=== PATIENT | male | born 1970 | race Caucasian/White ===

== ENCOUNTER 2017-07-25 08:59 | Emergency (ER) | payer SELFPAY ==
[2017-07-25] MEDS ORDERED: NORMAL SALINE 1,000 ML IV ONE ×2 (09:27→11:26)
[2017-07-25] MEDS ORDERED: ONDANSETRON HCL/PF 2 MG/ML VIAL IV ONE (09:27)
[2017-07-25] MEDS ORDERED: ONDANSETRON HCL/PF 2 MG/ML VIAL ONE (09:30)
[2017-07-25 09:52] LABS: Hematocrit 30.5 % (42.0-52.0); Hemoglobin 11.4 gm/dL (13.5-18.0); Mean Cell Volume 106.6 fl (78-100); Mean Corpuscular Hemoglobin 39.9 pg (27-31); Mean Corpuscular Hgb Conc 37.4 g/dl (32-36); Mean Platelet Volume 10.1 fl (6.0-9.5); Neutrophil # 1.4 K/mm3 (1.3-6.0); Neutrophil % 35.7 % (42-75.0); Platelet Count 113 K/mm3 (150-450); Red Blood Count 2.86 M/mm3 (4.7-6.0); Red Cell Distribution Width 13.6 % (11.5-14.0)
[2017-07-25 10:06] LABS: Albumin * 3.1 gm/dl (3.4-5.0); Anion Gap 6.1 mmol/L (6.8-13.8); BUN/Creatinine Ratio 5.6 (9.0-21.6); Bilirubin, Total 0.8 mg/dL (0.0-1.1); Ca. Corrected For Albumin 9.4 mg/dL (8.4-10.2); Carbon Dioxide 34.9 mmol/L (24-32.6); Total Protein 6.4 gm/dL (6.2-8.2)
[2017-07-25 10:23] LABS: Urine Bilirubin 1 mg/dl (NEGATIVE); Urine Blood Negative /ul (NEGATIVE); Urine Ketone 5 mg/dL (NEGATIVE); Urine Nitrite Negative (NEGATIVE); Urine Protein Negative (NEGATIVE); Urine Urobilinogen Normal (NORMAL); Urine pH 8.5 pH (5.0-7.0)
[2017-07-25 10:33] LABS: Cocaine Ur Negative (NEGATIVE); Urine Barbiturate Negative (NEGATIVE); Urine Benzodiazepines Negative (NEGATIVE); Urine Opiates Negative (NEGATIVE); Urine PCP Negative (NEGATIVE); Urine THC Negative (NEGATIVE)
[2017-07-25 10:35] LABS: Urine Appearance Clear; Urine Bacteria None Seen; Urine Color Dark Yellow; Urine RBC TRACE /hpf (0-5); Urine WBC TRACE /hpf (0-5)
[2017-07-25] MEDS ORDERED: DIATRIZOATE MEGLUMINE, SODIUM 30 ML BTL ONE (10:46)
[2017-07-25] MEDS ORDERED: DIATRIZOATE MEGLUMINE, SODIUM 30 ML BTL PO ONE (10:50)
[2017-07-25] MEDS: POTASSIUM CHLORIDE IN WATER 100 ML IV SCH ×3 (11:26→14:30)
[2017-07-25 12:43] VITALS: BP 127/88
--- NOTE | 2017-07-25 14:15 | ERNOTE ---
Dizziness ER Record Date of Service: 07/25/17 Presenting Symptoms: dizziness, weakness Time Seen by Provider: 07/25/17 09:15 Source: patient, family Exam Limitations: no limitations Immunizations: IMMUNIZATION HX Immunizations Up to Date Yes History of Influenza Vaccine No Hx Pneumococcal Vaccination No Allergies/Adverse Reactions: Allergies Allergy/AdvReac Type Severity Reaction Status Date / Time No Known Allergies Allergy Unverified 07/25/17 09:10 Home Medications: HOME MEDICATIONS Diphenoxylate HCl/Atrop Sulf [Lomotil] 2.5 mg PO QID PRN #40 tab 07/25/17 [Last Taken Unknown] Omeprazole [Prilosec] 20 mg PO DAILY 07/25/17 [Last Taken Unknown] Ondansetron [Zofran Odt] 4 mg PO Q8H PRN #20 tab 07/25/17 [Last Taken Unknown] Potassium Chloride [K-Dur] 20 meq PO DAILY #30 tab 07/25/17 [Last Taken Unknown] - History of Present Illness Narrative: patient has been sick with nausea and vomiting and diarrhea for one week normally drinks eight plus beers aday and has not done this for one week Timing and Duration: gradual onset Noted on awakening:: No Severity: max: moderate Severity: currently: moderate Associated Symptoms: Present: weakness, light headedness Sense of movement: Present: none Fainted/near fainted while:: Present: standing Decreased ability to stand/walk:: Present: weak, off balance Usually:: Present: walks w/o assistance Modifying Factors - (Improves): Reports: nothing Modifying Factors - (Worsens): Reports: movement of head Review of Systems - Review of Systems Constitutional: Present: See HPI EYE: Present: no symptoms reported ENT: Present: no symptoms reported Respiratory: Present: no symptoms reported Cardiology: Present: no symptoms reported Gastrointestinal/Abdominal: Present: See HPI, nausea, vomiting, diarrhea, abdominal pain, eating less, drinking less Genitourinary: Present: no symptoms reported Musculoskeletal: Present: no symptoms reported Skin: Present: no symptoms reported Neurological: Present: no symptoms reported Endocrine: Present: no symptoms reported Hematologic/Lymphatic: Present: no symptoms reported Psych: Present: no symptoms reported All Other Systems: All systems neg except as marked - Narrative Narrative: hx of chronic alcohol abuse - Patient's Past Medical History Patient History - Medical: GERD Patient History - Cardiac/Respiratory: No pertinent hx Patient History - Cancer: No Hx of Cancer Patient History - Surgical Procedures: No surgical history, Other Patient History - Other: None - Family History Family History:: no untoward family reactions to anesthesia, no familial bleeding tendencies, no family history of clotting disorders, no family history of premature - Social History Living Situations: home Abuse History: Hx of Substance Use Psych History: No pertinent hx, Hx of Anxiety Does anyone smoke in the home?: Yes Smoking Status: Current every day smoker Have you smoked in the past 12 months: Yes Do you dip or chew tobacco: No Patient requests Smoking Cessation Consult: No Initiate information on Smoking Cessation: No Alcohol Use: heavy Drug Use: none - Immunizations Immunizations Up to Date: Yes Hx Pneumococcal Vaccination: No History of Influenza Vaccine: No Physical Exam - Physical Exam General Appearance: Present: moderate distress Head Exam: Present: normal inspection, no evidence of injury Eye Exam: Normal inspection: bilateral, PERRL: bilateral, EOMI: bilateral Ears, Nose, Throat: Present: normal ENT inspection Neck: Present: normal inspection, nontender Respiratory: Present: no respiratory distress, normal breath sounds, no accessory muscle use, chest nontender, lungs clear Cardiovascular/Chest: Present: regular rate, rhythm, no murmur, normal peripheral pulses Peripheral Pulses: N=norm/S=strong/W=weak/B=bound/A=absent: Carotid (R): Normal , Carotid (L): Normal, Radial (R): Normal, Radial (L): Normal, Femoral (R): Normal, Femoral (L): Normal, Dorsalis-pedis (R): Normal, Dorsalis-pedis (L): Normal Gastrointestinal/Abdominal: Present: normal bowel sounds, tenderness - diffuse tenderness no quarding Back Exam: Present: normal inspection, normal range of motion, no CVA tenderness , no vertebral tenderness Extremity Exam: Present: normal inspection, non-tender, normal range of motion, no edema Neurological Exam: Present: alert, oriented, normal mood/affect, no motor/ sensory deficits DTR: N=norm/NB=norm/brisk/A=abs/DD=dull/dimin/HC=hyperactive: Bicep (R): Normal , Bicep (L): Normal, Tricep (R): Normal, Tricep (L): Normal, Knee (R): Normal, Knee (L): Normal, Ankle (R): Normal, Ankle (L): Normal Skin Exam: Present: other - appears dehydrated ED Progress - Date and Time Seen: Date and Time: 07/25/17 14:06 patient appears improved , requesting dismissal - Results and Orders Patient's Lab Results:: I have reviewed the patient's lab results. - Vital Signs Patient's Vital Signs:: I have reviewed the patient's vital signs. Vital Signs: Vital Signs 07/25/17 07/25/17 07/25/17 09:03 09:13 09:27 Temperature 36.4 C L Pulse Rate 75 94 68 Respiratory 13 20 Rate Blood Pressure 145/102 125/77 O2 Sat by Pulse 98 100 Oximetry 07/25/17 07/25/17 07/25/17 09:51 11:03 11:53 Temperature Pulse Rate 65 66 65 Respiratory 15 10 L 11 L Rate Blood Pressure 136/99 138/99 118/92 O2 Sat by Pulse 100 100 100 Oximetry 07/25/17 07/25/17 12:41 13:50 Temperature Pulse Rate 71 78 Respiratory 13 Rate Blood Pressure 127/88 O2 Sat by Pulse 100 100 Oximetry - EKG EKG: NSR - X-Ray X-Ray #1 X-Ray: abdomen - no acute process Interpretation: Discd w/ radiologist - CT/Ultrasound CT/Ultrasound Narrative: ct reported as no evidense of acute process or pancreatitis - Progress/Reassessment Chief Complaint: Dizziness Progress:: Unchanged - Transfer of Care Expected Disposition: Discharge - patient recommende to be admitted, is to sign out ama Plan - Plan Plan: to be discharged ama Departure Clinical Impression: Hypokalemia, Pancreatitis, acute, Dehydration, moderate - Departure Disposition: Against medical advice Condition: Serious Instructions: Hypokalemia, Acute Pancreatitis, Dehydration, Adult, [id number] Prescriptions: Diphenoxylate HCl/Atrop Sulf [Lomotil] 2.5 mg PO QID PRN #40 tab PRN Reason: Diarrhea Ondansetron [Zofran Odt] 4 mg PO Q8H PRN #20 tab PRN Reason: Nausea Potassium Chloride [K-Dur] 20 meq PO DAILY #30 tab
== END 2017-07-25 14:33 | disposition left against medical advice (07) ==
LOC: ER 08:59
DX: E87.6 Hypokalemia (principal); K85.90 Acute pancreatitis without necrosis or infection, unspecified; E86.0 Dehydration; F17.200 Nicotine dependence, unspecified, uncomplicated; Z53.29 Procedure and treatment not carried out because of patient's decision for other reasons; K21.9 Gastro-esophageal reflux disease without esophagitis
CPT/HCPCS: 36415; 74018; 74177; 80053; 80307; 81001; 82150; 83690; 84132; 85025; 93005; 96361; 96365; 96366; 96375; 99285; J2405

== ENCOUNTER 2017-08-04 14:22 | Emergency (ER) | payer SELFPAY ==
[2017-08-04 15:03] LABS: Hematocrit 31.3 % (42.0-52.0); Mean Cell Volume 108.7 fl (78-100); Mean Corpuscular Hemoglobin 38.2 pg (27-31); Mean Corpuscular Hgb Conc 35.1 g/dl (32-36); Neutrophil # 3.6 K/mm3 (1.3-6.0); Neutrophil % 73.1 % (42-75.0); Platelet Count 166 K/mm3 (150-450); Red Blood Count 2.88 M/mm3 (4.7-6.0); Red Cell Distribution Width 14.3 % (11.5-14.0)
--- NOTE | 2017-08-04 15:04 | ERNOTE ---
Lower Extremity HPI - General Lower Extremities Pain: leg: right - swelling and pain Time Seen by Provider: 08/04/17 14:38 Source: patient Exam Limitations: no limitations - Immun/Allergies/Home Medications Immunizations: IMMUNIZATION HX Immunizations Up to Date Yes History of Influenza Vaccine No Hx Pneumococcal Vaccination No Allergies/Adverse Reactions: Allergies Allergy/AdvReac Type Severity Reaction Status Date / Time No Known Allergies Allergy Verified 08/04/17 14:36 Home Medications: HOME MEDICATIONS Diphenoxylate HCl/Atrop Sulf [Lomotil] 2.5 mg PO QID PRN #40 tab 07/25/17 [Last Taken Unknown] Omeprazole [Prilosec] 20 mg PO DAILY 07/25/17 [Last Taken Unknown] Potassium Chloride [K-Dur] 20 meq PO DAILY #30 tab 07/25/17 [Last Taken Unknown] Warfarin Sodium [Coumadin] 5 mg PO DAILY #30 tablet 08/04/17 [Last Taken Unknown ] - History of Present Illness Narrative: Patient complains of swelling in the right calf and right foot and ankle. He admits to drinking up to a fifth of vodka a day and has had a recent bout of hypokalemia. He rates the pain as only mild in severity but also complains that his skin appears to be somewhat yellowish as well. Occurred: other - over the past few days Method of Injury: Reports: no apparent injury Loss of Consciousness: Reports: no loss of consciousness Other Injuries: Reports: none Review of Systems - Review of Systems Constitutional: Present: See HPI EYE: Present: other - yellowish appearance to the sclera ENT: Present: no symptoms reported Respiratory: Present: no symptoms reported Cardiology: Present: no symptoms reported Gastrointestinal/Abdominal: Present: no symptoms reported Genitourinary: Present: no symptoms reported Musculoskeletal: Present: other - equivocal Homans with 2+ edema in the right lower extremity Skin: Present: no symptoms reported Neurological: Present: no symptoms reported Endocrine: Present: no symptoms reported Hematologic/Lymphatic: Present: no symptoms reported Psych: Present: no symptoms reported - Patient's Past Medical History Patient History - Medical: GERD Patient History - Cardiac/Respiratory: No pertinent hx Patient History - Cancer: No Hx of Cancer Patient History - Surgical Procedures: No surgical history, Other Patient History - Other: None - Social History Living Situations: home Abuse History: Hx of Substance Use - daily alcohol Psych History: No pertinent hx, Hx of Anxiety Alcohol Use: none Drug Use: none - Immunizations Immunizations Up to Date: Yes Hx Pneumococcal Vaccination: No History of Influenza Vaccine: No Physical Exam - Physical Exam General Appearance: Present: wd/wn, alert, mild distress Head Exam: Present: normal inspection, no evidence of injury Eye Exam: PERRL: bilateral, Scleral icterus: bilateral Ears, Nose, Throat: Present: normal ENT inspection, H, normal pharynx Neck: Present: normal inspection, nontender Respiratory: Present: no respiratory distress, normal breath sounds, no accessory muscle use, chest nontender, lungs clear Cardiovascular/Chest: Present: regular rate, rhythm, no murmur, normal peripheral pulses Gastrointestinal/Abdominal: Present: normal bowel sounds, nontender, nondistended, soft, no organomegaly Rectal Exam: Present: deferred Back Exam: Present: normal inspection, normal range of motion Extremity Exam: Present: non-tender, normal range of motion, calf tenderness - on the right, joint swelling - around the right foot and ankle Neurological Exam: Present: alert, oriented, normal mood/affect Skin Exam: Present: warm/dry, jaundice Lymphatic Exam: Present: no adenopathy ED Progress - Results and Orders Patient's Lab Results:: I have reviewed the patient's lab results. - Vital Signs Patient's Vital Signs:: I have reviewed the patient's vital signs. Vital Signs: Vital Signs 08/04/17 14:31 Temperature 36.6 C Pulse Rate 106 H Respiratory 12 Rate Blood Pressure 153/109 O2 Sat by Pulse 97 Oximetry - CT/Ultrasound CT/Ultrasound Narrative: Ultrasound of the right lower extremity reviewed by me - Progress/Reassessment Chief Complaint: Lower Extremity Pain/ Injury Plan - Plan Plan: Patient has a DVT in the right calf and will need to be treated with some form of anticoagulant. This would be somewhat problematic because he is also an alcoholic. We will do our best to try to provide some degree of anticoagulation and he will try to cut back on his alcohol consumption. Departure Clinical Impression: Hypokalemia DVT (deep venous thrombosis) Qualifiers: DVT location: lower extremity Affected thrombotic vein of extremity: unspecified lower extremity proximal vein Chronicity: acute Laterality: right Qualified Code(s): I82.4Y1 - Acute embolism and thrombosis of unspecified deep veins of right proximal lower extremity - Departure Disposition: Home self-care Condition: Good Instructions: Deep Vein Thrombosis Additional Instructions: return to the [facility] for PT/INR checks at [facility] Prescriptions: Warfarin Sodium [Coumadin] 5 mg PO DAILY #30 tablet
[2017-08-04 15:15] LABS: ALT 45 U/L (19-67); AST 62 U/L (0-48); Albumin * 2.8 gm/dl (3.4-5.0); Alkaline Phosphatase * 79 U/L (50-170); Anion Gap 12.7 mmol/L (6.8-13.8); BUN/Creatinine Ratio 2.7 (9.0-21.6); Bilirubin, Total 0.7 mg/dL (0.0-1.1); Blood Urea Nitrogen 2 mg/dL (6-23); Ca. Corrected For Albumin 8.8 mg/dL (8.4-10.2); Calcium * 8.2 mg/dL (7.9-10.9); Carbon Dioxide 28.4 mmol/L (24-32.6); Chloride 101 mmol/L (97-106); Glucose * 111 mg/dL (70-110); Magnesium 1.4 mg/dL (1.2-2.8); Potassium 3.1 mmol/L (3.4-4.6); Sodium 139 mmol/L (132-142); Total Protein 5.8 gm/dL (6.2-8.2)
[2017-08-04] MEDS ORDERED: POTASSIUM CHLORIDE 20 MEQ TABLET.SA PO ONE (15:48)
[2017-08-04] MEDS ORDERED: POTASSIUM CHLORIDE 20 MEQ TABLET.SA ONE (16:03)
[2017-08-04] MEDS ORDERED: WARFARIN SODIUM 5 MG TABLET PO ONE (16:15)
[2017-08-04 16:19] LABS: Prothrombin Time (Patient) 10.9 Seconds (9.0-11.0)
[2017-08-04 16:20] LABS: INR 1.09 INR (0.90-1.10)
[2017-08-04 16:42] VITALS: BP 149/101
== END 2017-08-04 16:25 | disposition home or self-care (01) ==
LOC: ER 14:22
DX: I82.4Y1 Acute embolism and thrombosis of unspecified deep veins of right proximal lower extremity; E87.6 Hypokalemia
CPT/HCPCS: 36415; 80053; 83735; 85025; 85610; 93971; 99284; G0481

== ENCOUNTER 2017-08-08 09:29 | Observation (INO) | payer SELFPAY ==
[2017-08-08] MEDS ORDERED: THIAMINE HCL 100 MG in NORMAL SALINE 50 ML IV ONE (10:13)
[2017-08-08] MEDS ORDERED: NORMAL SALINE 1,000 ML IV ONE (10:13)
[2017-08-08] MEDS ORDERED: MULTIVIT INFUSN,ADULT 4,VIT K 10 ML, THIAMINE HCL 100 MG in NORMAL SALINE 1,000 ML IV SCH (10:15)
[2017-08-08 10:19] LABS: Cocaine Ur Negative (NEGATIVE); Urine Barbiturate Negative (NEGATIVE); Urine Benzodiazepines Negative (NEGATIVE); Urine Opiates Negative (NEGATIVE); Urine PCP Negative (NEGATIVE); Urine THC Negative (NEGATIVE)
[2017-08-08 10:26] LABS: Urine Appearance Clear; Urine Bacteria None Seen; Urine Bilirubin Negative (NEGATIVE); Urine Blood Negative /ul (NEGATIVE); Urine Color Yellow; Urine Ketone Negative (NEGATIVE); Urine Nitrite Negative (NEGATIVE); Urine Protein Negative (NEGATIVE); Urine RBC None Seen /hpf (0-5); Urine Specific Gravity 1.005 SP.GR. (1.005-1.030); Urine Urobilinogen Normal (NORMAL); Urine WBC None Seen /hpf (0-5)
[2017-08-08] MEDS ORDERED: chlordiazePOXIDE HCL 25 MG CAPSULE PO ONE ×2 (10:27→10:30)
[2017-08-08] MEDS ORDERED: LORazepam 2 MG/ML DISP.SYRIN IV ONE (10:28)
[2017-08-08 10:30] LABS: Hematocrit 29.4 % (42.0-52.0); Hemoglobin 10.5 gm/dL (13.5-18.0); Mean Cell Volume 110.9 fl (78-100); Mean Corpuscular Hemoglobin 39.6 pg (27-31); Mean Corpuscular Hgb Conc 35.7 g/dl (32-36); Mean Platelet Volume 9.3 fl (6.0-9.5); Neutrophil # 3.2 K/mm3 (1.3-6.0); Platelet Count 154 K/mm3 (150-450); Red Blood Count 2.65 M/mm3 (4.7-6.0); Red Cell Distribution Width 14.8 % (11.5-14.0); White Blood Count 5.3 K/mm3 (4.0-10.5)
[2017-08-08 10:38] LABS: Prothrombin Time (Patient) 18.1 Seconds (9.0-11.0)
[2017-08-08 10:39] LABS: INR 1.8 INR (0.90-1.10)
--- NOTE | 2017-08-08 10:45 | ERNOTE ---
Medical Problem HPI - Narrative Date of Service: 08/08/17 - General Chief Complaint: General Assessment Time Seen by Provider: 08/08/17 09:59 Source: patient Exam Limitations: no limitations - Immun/Allergies/Home Medications Immunizations: IMMUNIZATION HX Immunizations Up to Date Yes History of Influenza Vaccine No Hx Pneumococcal Vaccination No Allergies/Adverse Reactions: Allergies No Known Allergies Allergy (Verified 08/08/17 09:56) Home Medications: HOME MEDICATIONS Diphenoxylate HCl/Atrop Sulf [Lomotil] 2.5 mg PO QID PRN #40 tab 07/25/17 [Last Taken Unknown] Omeprazole [Prilosec] 20 mg PO DAILY 07/25/17 [Last Taken Unknown] Potassium Chloride [K-Dur] 20 meq PO DAILY #30 tab 07/25/17 [Last Taken Unknown] Warfarin Sodium [Coumadin] 5 mg PO DAILY #30 tablet 08/04/17 [Last Taken Unknown ] - History of Present History Narrative: Pt. comes in with c/o confusion, shakiness, and hallucinations after he stopped drinking ETOH 5 days ago. Pt. states that he used to drink 1.5 bottles of tequila or vodka a day and stopped cold turkey when he was started on Coumadin and his cousin who is here states that the day after he stopped he was walking like a marionette very uncoordinated and has had many episodes of short term memory loss. Cousin denies any episodes of specific weakness. Timing: getting worse Severity: moderate Modifying Factors - (Improves): Present: other - denies Modifying Factors - (Worsens): Present: other - denies Review of Systems - Review of Systems Constitutional: Present: no symptoms reported. Absent: fever, chills, weakness , fatigue, malaise EYE: Present: no symptoms reported. Absent: eye pain, double vision ENT: Present: no symptoms reported Respiratory: Present: no symptoms reported. Absent: shortness of breath, cough , wheezing Cardiology: Present: chest pain - occasional. Absent: palpitations, edema Gastrointestinal/Abdominal: Present: nausea. Absent: vomiting, diarrhea Genitourinary: Present: no symptoms reported. Absent: frequency, decreased urinary output Musculoskeletal: Present: no symptoms reported. Absent: back pain, neck pain, joint pain Skin: Present: no symptoms reported. Absent: rash, change in color Neurological: Present: weakness, tremors, other - confusion and hallucinations. Absent: headache, dizziness/light-headedness, numbness, tingling All Other Systems: All systems neg except as marked - Patient's Past Medical History Patient History - Medical: GERD, Other - ETOH abuse Patient History - Cardiac/Respiratory: No pertinent hx Patient History - Cancer: No Hx of Cancer Patient History - Surgical Procedures: No surgical history, Other Patient History - Other: None - Social History Living Situations: home Abuse History: Hx of Substance Use Psych History: No pertinent hx, Hx of Anxiety Smoking Status: Former smoker Alcohol Use: heavy Drug Use: none - Immunizations Immunizations Up to Date: Yes Hx Pneumococcal Vaccination: No History of Influenza Vaccine: No Physical Exam - Physical Exam General Appearance: Present: wd/wn, alert, no apparent distress Head Exam: Present: normal inspection, no evidence of injury Eye Exam: PERRL: bilateral, Other: bilateral - nystagmus B with lateral movement Ears, Nose, Throat: Present: normal ENT inspection, normal pharynx Neck: Present: normal inspection, nontender, supple, full range of motion. Absent: lymphadenopathy (R), lymphadenopathy (L) Respiratory: Present: no respiratory distress, normal breath sounds, no accessory muscle use, chest nontender, lungs clear. Absent: crackles, rales, rhonchi, wheezing Cardiovascular/Chest: Present: regular rate, rhythm, no murmur, normal peripheral pulses. Absent: tachycardia Gastrointestinal/Abdominal: Present: normal bowel sounds, nontender, nondistended, soft, no organomegaly. Absent: guarding, rebound, Ozuna sign, mass Rectal Exam: Present: nontender Back Exam: Present: normal inspection Extremity Exam: Present: normal inspection Neurological Exam: Present: alert, disoriented to situation, other - hallucinations, moderate tremor, delusional, and forgetful ED Progress - Date and Time Seen: Date and Time: 08/08/17 11:[address] Araujo and he agrees to admit for observation and would like add on ammonia level - Results and Orders Patient's Lab Results:: I have reviewed the patient's lab results. - Vital Signs Patient's Vital Signs:: I have reviewed the patient's vital signs. Vital Signs: Vital Signs 08/08/17 09:51 Temperature 36.9 C Pulse Rate 103 H Respiratory 12 Rate Blood Pressure 151/100 O2 Sat by Pulse 99 Oximetry - EKG EKG: NSR EKG read: Interp. by me - X-Ray X-Ray #1 X-Ray: chest Interpretation: Reviewed by me X-ray Comments: No acute cardiopulmonary abnormality - CT/Ultrasound CT/Ultrasound Narrative: CT head negative for any acute abnormality - Progress/Reassessment Chief Complaint: General Assessment Departure Clinical Impression: Wernicke's encephalopathy, Alcohol withdrawal delirium - Departure Disposition: Still a patient Condition: Serious
[2017-08-08 10:47] LABS: ALT 31 U/L (19-67); AST 30 U/L (0-48); Albumin * 2.7 gm/dl (3.4-5.0); Alkaline Phosphatase * 68 U/L (50-170); Anion Gap 15.8 mmol/L (6.8-13.8); BUN/Creatinine Ratio 6.8 (9.0-21.6); Bilirubin, Total 0.7 mg/dL (0.0-1.1); Blood Urea Nitrogen 4 mg/dL (6-23); Ca. Corrected For Albumin 9.7 mg/dL (8.4-10.2); Carbon Dioxide 24.6 mmol/L (24-32.6); Chloride 100 mmol/L (97-106); Glucose * 89 mg/dL (70-110); Magnesium 1.4 mg/dL (1.2-2.8); Phosphorus 4.8 mg/dL (2.2-4.2); Potassium 3.4 mmol/L (3.4-4.6); Sodium 137 mmol/L (132-142); Total Protein 6.1 gm/dL (6.2-8.2)
[2017-08-08 10:48] LABS: Troponin I Less than 0.017 ng/ml (0.00-0.10)
[2017-08-08] MEDS ORDERED: LORazepam 2 MG/ML DISP.SYRIN ONE (10:57)
[2017-08-08] MEDS ORDERED: chlordiazePOXIDE HCL 25 MG CAPSULE ONE (10:57)
[2017-08-08] MEDS ORDERED: THIAMINE HCL 100 MG, FOLIC ACID 1 MG in NORMAL SALINE 50 ML IV ONE (11:00)
[2017-08-08] MEDS: chlordiazePOXIDE HCL 25 MG CAPSULE PO SCH ×3 (14:44→20:48)
[2017-08-08] MEDS: LORazepam 2 MG/ML DISP.SYRIN IV PRN ×3 (17:40→22:14)
--- NOTE | 2017-08-08 23:29 | HP ---
Chief Complaint - Chief Complaint Date of Service: 08/08/17 Time of Service: 16:00 Chief Complaint: Confusion, hallucination History of Present Illness: Olu is a 46 yo male with recent history of DVT. He was started on coumadin a few weeks ago and the patient decided to stop drinking. He is a chronic alcoholic, reportedly drinking a fifth of vodka daily. He sudden stopped a week ago. A few days ago he begin having shakes which have progressed and is now having confusion, hallucinations, tremors, and balance difficulty. He reports stopping alcohol before, but admits that he wasn't drinking as much then. In regards to the recent DVT he denies family history, recent travel, or recent injury. Family does report that he has been sitting around at home drinking and eating poorly. They do not believe he is as active as he was. There are no reports of trauma to the head. He denies headache. - Patient's Past Medical History Patient History - Medical: Alcohol Abuse, GERD, Other - DVT right leg Patient History - Cardiac/Respiratory: No pertinent hx Patient History - Cancer: No Hx of Cancer Patient History - Surgical Procedures: No surgical history Patient History - Other: None - Family History Father Family History - Medical: Anxiety, Arthritis, Depression Family History - Cancer: No pertinent family hx Mother Family History - Medical: History Unknown - Social History Living Situations: alone Abuse History: Hx of Substance Use Psych History: No pertinent hx, Hx of Anxiety Smoking Status: Current some day smoker Have you smoked in the past 12 months: Yes Do you dip or chew tobacco: No Smoking Start Date: 06/16/12 Patient requests Smoking Cessation Consult: Yes Initiate information on Smoking Cessation: Yes Alcohol Use: heavy - Stopped 08/03/17 Drug Use: none - Immunizations Immunizations Up to Date: Yes Hx Pneumococcal Vaccination: No History of Influenza Vaccine: No Review Of Systems (GEN) - Review of Systems Generalized/Overall Review: Present: Weakness, Malaise, Fatigue. Absent: Chills , Fever, Diaphoresis EENTM: Present: No Symptoms Reported Respiratory: Present: No Symptoms Reported Cardiac: Present: No Symptoms Reported Abdominal: Present: No Symptoms Reported Genitourinary: Present: No Symptoms Reported Musculoskeletal: Present: Muscle Pain - Right leg Neurological: Present: Tremors, Weakness, Other - Hallucinations, confusion Skin: Present: No Symptoms Reported Endocrine: Present: No Symptoms Reported Allergies/Adverse Reactions: Allergies Allergy/AdvReac Type Severity Reaction Status Date / Time No Known Allergies Allergy Verified 08/08/17 14:03 Home Medications: HOME MEDICATIONS Omeprazole [Prilosec] 20 mg PO DAILY 07/25/17 [Last Taken Unknown] Potassium Chloride [K-Dur] 20 meq PO DAILY #30 tab 07/25/17 [Last Taken Unknown] Warfarin Sodium [Coumadin] 5 mg PO DAILY #30 tablet 08/04/17 [Last Taken Unknown ] Exam - Exam Vital Signs: Vital Signs - Last Taken Temp 36.9 C 08/08/17 19:11 Pulse 116 H 08/08/17 19:11 Resp 20 08/08/17 19:11 BP 145/98 08/08/17 19:11 Pulse Ox 92 08/08/17 19:11 Constitutional: Present: Alert, Oriented x3, Cooperative ENT Exam: Present: hearing grossly normal Eye Exam: bilateral eye: normal inspection Respiratory: Present: lungs clear, normal breath sounds Cardiovascular/Chest: Present: regular rate, rhythm, no murmur Abdomen: Present: Normal bowel sounds, soft, nontender, nondistended Extremity: Present: no pedal edema, no calf tenderness Skin Exam: Present: normal color, warm/dry, no cyanosis Lymphatic: Present: no adenopathy 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, no motor/sensory deficits, alert , normal mood/affect, oriented x 3, other - Mild tremor Eye contact: Present: cooperative, good eye contact, normal speech Diagnostic Studies: Laboratory Results WBC 5.3 K/mm3 (4.0-10.5) 08/08/17 10:23 RBC 2.65 M/mm3 (4.7-6.0) L 08/08/17 10:23 Hgb 10.5 gm/dL (13.5-18.0) L 08/08/17 10:23 Hct 29.4 % (42.0-52.0) L 08/08/17 10:23 MCV 110.9 fl (78-100) H 08/08/17 10:23 MCH 39.6 pg (27-31) H 08/08/17 10:23 MCHC 35.7 g/dl (32-36) 08/08/17 10:23 RDW 14.8 % (11.5-14.0) H 08/08/17 10:23 Plt Count 154 K/mm3 (150-450) 08/08/17 10:23 MPV 9.3 fl (6.0-9.5) 08/08/17 10:23 Immature Gran % (Auto) 0.40 % (0.001-0.429) 08/08/17 10:23 Immature Gran # (Auto) 0.02 K/mm3 (0.000-0.0310) 08/08/17 10:23 Neutrophils % 61.0 % (42-75.0) 08/08/17 10:23 Lymphocytes % 22.8 % (20-51) 08/08/17 10:23 Monocytes % 12.0 % (0.0-9) H 08/08/17 10:23 Eosinophils % 3.0 % (0.0-3.0) 08/08/17 10:23 Basophils % 0.8 % (0.0-1.0) 08/08/17 10:23 Nucleated RBC % 0.0 k/mm3 (0-1) 08/08/17 10:23 Neutrophils # 3.2 K/mm3 (1.3-6.0) 08/08/17 10:23 Lymphocytes # 1.2 k/mm3 (1.5-3.5) L 08/08/17 10:23 Monocytes # 0.6 k/mm3 (0.0-1.0) 08/08/17 10:23 Eosinophils # 0.2 k/mm3 (0.0-0.7) 08/08/17 10:23 Absolute Basophils 0.0 k/mm3 (0.0-0.1) 08/08/17 10:23 PT 18.1 Seconds (9.0-11.0) H 08/08/17 10:23 INR (Anticoag Therapy) 1.80 INR (0.90-1.10) H 08/08/17 10:23 Sodium 137 mmol/L (132-142) 08/08/17 10:23 Plasma Sodium 137 mmol/L (130-142) 08/08/17 10:23 Potassium 3.4 mmol/L (3.4-4.6) 08/08/17 10:23 Chloride 100 mmol/L (97-106) 08/08/17 10:23 Carbon Dioxide 24.6 mmol/L (24-32.6) 08/08/17 10:23 Anion Gap 15.8 mmol/L (6.8-13.8) H 08/08/17 10:23 BUN 4 mg/dL (6-23) L D 08/08/17 10:23 Creatinine 0.59 mg/dL (0.4-1.4) 08/08/17 10:23 Est GFR (Non-Af Amer) 158 mL/min (60-130) H D 08/08/17 10:23 BUN/Creatinine Ratio 6.8 (9.0-21.6) L 08/08/17 10:23 Random Glucose 89 mg/dL (70-110) 08/08/17 10:23 Calcium 9.0 mg/dL (7.9-10.9) 08/08/17 10:23 Calcium Adj for Albumin 9.7 mg/dL (8.4-10.2) 08/08/17 10:23 Phosphorus 4.8 mg/dL (2.2-4.2) H 08/08/17 10:23 Magnesium 1.4 mg/dL (1.2-2.8) 08/08/17 10:23 Total Bilirubin 0.7 mg/dL (0.0-1.1) 08/08/17 10:23 AST 30 U/L (0-48) 08/08/17 10:23 ALT 31 U/L (19-67) 08/08/17 10:23 Alkaline Phosphatase 68 U/L (50-170) 08/08/17 10:23 Ammonia Less than 17.0 mcmol/L (11-35) 08/08/17 12:00 Troponin I Less than 0.017 ng/ml (0.00-0.10) 08/08/17 10:23 Total Protein 6.1 gm/dL (6.2-8.2) L 08/08/17 10:23 Albumin 2.7 gm/dl (3.4-5.0) L 08/08/17 10:23 Urine Color Yellow 08/08/17 10:00 Urine Appearance Clear 08/08/17 10:00 Urine pH 6.0 pH (5.0-7.0) 08/08/17 10:00 Ur Specific [place] 1.005 SP.GR. (1.005-1.030) 08/08/17 10:00 Urine Protein Negative mg/dL (NEGATIVE) 08/08/17 10:00 Urine Glucose (UA) Negative mg/dL (NEGATIVE) 08/08/17 10:00 Urine Ketones Negative mg/dL (NEGATIVE) 08/08/17 10:00 Urine Blood Negative /ul (NEGATIVE) 08/08/17 10:00 Urine Nitrate Negative (NEGATIVE) 08/08/17 10:00 Urine Bilirubin Negative mg/dl (NEGATIVE) 08/08/17 10:00 Urine Urobilinogen Normal EU/dl (NORMAL) 08/08/17 10:00 Ur Leukocyte Esterase Negative /ul (NEGATIVE) 08/08/17 10:00 Urine RBC None seen /hpf (0-5) 08/08/17 10:00 Urine WBC None seen /hpf (0-5) 08/08/17 10:00 Ur Epithelial Cells None seen /hpf (0-5) 08/08/17 10:00 Urine Bacteria None seen (NONE) 08/08/17 10:00 Urine Culture Comments No culture indicated 08/08/17 10:00 Urine Opiates Screen Negative (NEGATIVE) 08/08/17 10:00 Barbiturate Screen Negative (NEGATIVE) 08/08/17 10:00 Ur Phencyclidine Scrn Negative (NEGATIVE) 08/08/17 10:00 Urine Amphetamine Negative (NEGATIVE) 08/08/17 10:00 U Benzodiazepines Scrn Negative (NEGATIVE) 08/08/17 10:00 Urine Cocaine Screen Negative (NEGATIVE) 08/08/17 10:00 Urine Marijuana (THC) Negative (NEGATIVE) 08/08/17 10:00 Ethyl Alcohol Less than 3.0 mg/dL (0.0-10.0) 08/08/17 10:23 Assessment/Plan - Assessment/Plan (1) Alcohol withdrawal delirium Assessment: Olu is a 46 yo male with evidence of alcohol withdrawal with delirium tremens. He stopped significant alcohol abuse this week, confirmed with zero alcohol in his serum. All other labs including electrolytes, ammonia, WBC were normal. Head CT was normal. Will admit to observation with CIWA protocol and Ativan withdrawal parameter. Will recheck bloodwork in the morning. Expect 1 midnight stay for monitoring of withdrawal symptoms, but based on CIWA scoring he may need further treatment if withdrawal is severe. Problem: Acute (2) DVT (deep venous thrombosis) Problem: Acute Qualifiers: DVT location: lower extremity Affected thrombotic vein of extremity: unspecified lower extremity proximal vein Chronicity: acute Laterality: right Qualified Code(s): I82.4Y1 - Acute embolism and thrombosis of unspecified deep veins of right proximal lower extremity
[2017-08-09] MEDS ORDERED: LORazepam 2 MG/ML DISP.SYRIN IV PRN ×2 (00:24→00:28)
[2017-08-09] MEDS: LORazepam 2 MG/ML DISP.SYRIN IV PRN ×3 (00:44→04:56)
[2017-08-09] MEDS: FOLIC ACID 1 MG TABLET PO SCH (10:00)
[2017-08-09] MEDS: chlordiazePOXIDE HCL 25 MG CAPSULE PO SCH ×3 (10:00→17:31)
[2017-08-09] MEDS: THIAMINE HCL 100 MG TABLET PO SCH (10:00)
[2017-08-09 11:12] LABS: Hematocrit 28.6 % (42.0-52.0); Hemoglobin 10.2 gm/dL (13.5-18.0); Mean Cell Volume 110.4 fl (78-100); Mean Corpuscular Hemoglobin 39.4 pg (27-31); Mean Corpuscular Hgb Conc 35.7 g/dl (32-36); Mean Platelet Volume 8.8 fl (6.0-9.5); Neutrophil # 2.1 K/mm3 (1.3-6.0); Neutrophil % 52.2 % (42-75.0); Platelet Count 171 K/mm3 (150-450); Red Blood Count 2.59 M/mm3 (4.7-6.0); Red Cell Distribution Width 14.5 % (11.5-14.0)
[2017-08-09 11:31] LABS: ALT 25 U/L (19-67); AST 28 U/L (0-48); Albumin * 2.4 gm/dl (3.4-5.0); Alkaline Phosphatase * 58 U/L (50-170); Anion Gap 16.4 mmol/L (6.8-13.8); BUN/Creatinine Ratio 6.3 (9.0-21.6); Bilirubin, Total 0.6 mg/dL (0.0-1.1); Blood Urea Nitrogen 3 mg/dL (6-23); Ca. Corrected For Albumin 9.3 mg/dL (8.4-10.2); Calcium * 8.3 mg/dL (7.9-10.9); Carbon Dioxide 26.3 mmol/L (24-32.6); Chloride 102 mmol/L (97-106); Glucose * 115 mg/dL (70-110); Potassium 2.7 mmol/L (3.4-4.6); Sodium 142 mmol/L (132-142); Total Protein 5.6 gm/dL (6.2-8.2)
[2017-08-09 11:32] LABS: Troponin I Less than 0.017 ng/ml (0.00-0.10)
[2017-08-09] MEDS ORDERED: POTASSIUM CHLORIDE 20 MEQ TABLET.SA PO ONE (11:34)
[2017-08-09] MEDS ORDERED: POTASSIUM CHLORIDE 20 MEQ TABLET.SA ONE (13:50)
--- NOTE | 2017-08-09 15:56 | PN ---
Subjective - Date and Time Seen Date: 08/09/17 Time: 12:00 Subjective Narrative: Olu has been confused, tremoring, hallucinating, and unsteady on feet. CIWA scale has been 25 at times, requiring Ativan per protocol. Patient unsure where he is at or why. He reports no concerns. Objective - Vitals Vitals: Last Vital Signs Temp 36.5 C 08/09/17 14:55 Pulse 96 08/09/17 14:55 Resp 20 08/09/17 14:55 BP 142/96 08/09/17 14:55 Pulse Ox 95 08/09/17 14:55 - Abnormal Lab Findings Abnormal Lab Findings: Abnormal Lab Results 08/09/17 08/09/17 08/09/17 Range/Units 11:06 11:06 11:06 RBC 2.59 L (4.7-6.0) M/mm3 Hgb 10.2 L (13.5-18.0) gm/dL Hct 28.6 L (42.0-52.0) % MCV 110.4 H (78-100) fl MCH 39.4 H (27-31) pg RDW 14.5 H (11.5-14.0) % Monocytes % 14.4 H (0.0-9) % Eosinophils % 4.5 H (0.0-3.0) % Lymphocytes # 1.1 L (1.5-3.5) k/mm3 VBG pH 7.478 H (7.32-7.43) Potassium 2.7 L D (3.4-4.6) mmol/L Anion Gap 16.4 H (6.8-13.8) mmol/L BUN 3 L (6-23) mg/dL Est GFR (Non-Af Amer) 200 H D (60-130) mL/min BUN/Creatinine Ratio 6.3 L (9.0-21.6) Random Glucose 115 H (70-110) mg/dL Total Protein 5.6 L (6.2-8.2) gm/dL Albumin 2.4 L (3.4-5.0) gm/dl - Exam Constitutional: Present: Alert, Other - tremors, unsteady on feet, confused, hallucinating, oriented to self only ENT Exam: Present: hearing grossly normal Respiratory: Present: lungs clear, normal breath sounds Cardiovascular/Chest: Present: no edema, tachycardia Abdomen: Present: Normal bowel sounds, soft, nontender, nondistended Skin Exam: Present: normal color, warm/dry, no cyanosis Assessment/Plan - Problems/Diagnosis (1) Alcohol withdrawal delirium Problem: Acute Narrative: Continue CIWA monitoring. Patient with significant CIWA of 25, will schedule ativan patient with tremors, hallucination. If confusion, hallucination continues into tomorrow will evaluate with Brain MRI. Patient is not safe for home discharge due to altered mental status. (2) DVT (deep venous thrombosis) Problem: Acute Qualifiers: DVT location: lower extremity Affected thrombotic vein of extremity: unspecified lower extremity proximal vein Chronicity: acute Laterality: right Qualified Code(s): I82.4Y1 - Acute embolism and thrombosis of unspecified deep veins of right proximal lower extremity Narrative: Continue Coumadin, monitor INR. (3) Hypokalemia Problem: Acute Narrative: Replace and monitor potassium.
[2017-08-09] MEDS ORDERED: WARFARIN SODIUM 5 MG TABLET PO SCH (17:00)
[2017-08-09] MEDS: LORazepam 1 MG TABLET PO SCH ×4 (17:31→20:36)
[2017-08-10] MEDS: LORazepam 1 MG TABLET PO SCH ×8 (00:42→12:38)
[2017-08-10 05:28] LABS: Hematocrit 30.4 % (42.0-52.0); Hemoglobin 10.6 gm/dL (13.5-18.0); Mean Cell Volume 110.9 fl (78-100); Mean Corpuscular Hemoglobin 38.7 pg (27-31); Mean Corpuscular Hgb Conc 34.9 g/dl (32-36); Mean Platelet Volume 8.9 fl (6.0-9.5); Neutrophil # 1.4 K/mm3 (1.3-6.0); Neutrophil % 40.7 % (42-75.0); Platelet Count 200 K/mm3 (150-450); Red Blood Count 2.74 M/mm3 (4.7-6.0); Red Cell Distribution Width 14.6 % (11.5-14.0); White Blood Count 3.5 K/mm3 (4.0-10.5)
[2017-08-10 05:38] LABS: Anion Gap 14.2 mmol/L (6.8-13.8); BUN/Creatinine Ratio 6.3 (9.0-21.6); Calcium * 8.6 mg/dL (7.9-10.9); Carbon Dioxide 26.1 mmol/L (24-32.6); Estimated Creat Clear 194.3; Potassium 3.3 mmol/L (3.4-4.6)
[2017-08-10] MEDS: THIAMINE HCL 100 MG TABLET PO SCH (08:14)
[2017-08-10] MEDS: FOLIC ACID 1 MG TABLET PO SCH (08:14)
[2017-08-10] MEDS: chlordiazePOXIDE HCL 25 MG CAPSULE PO SCH (08:16)
[2017-08-10 08:21] LABS: Prothrombin Time (Patient) 14.5 Seconds (9.0-11.0)
[2017-08-10 08:22] LABS: INR 1.44 INR (0.90-1.10)
[2017-08-10 10:43] VITALS: BP 133/88
--- NOTE | 2017-08-10 12:07 | DS ---
(1) Alcohol withdrawal delirium Problem: Acute (2) DVT (deep venous thrombosis) Problem: Acute Qualifiers: DVT location: lower extremity Affected thrombotic vein of extremity: unspecified lower extremity proximal vein Chronicity: acute Laterality: right Qualified Code(s): I82.4Y1 - Acute embolism and thrombosis of unspecified deep veins of right proximal lower extremity Description of Stay: Olu is a 46 yo male admitted for altered mental status after abruptly quitting alcohol. He developed delirium tremens and required scheduled ativan based on CIWA monitoring along with prn doses for control. With scheduled ativan his confusion and tremors improved. He had hallucinations, but these improved with scheduled ativan. Over time and with the addition of scheduled ativan he improved and was discharged to home on a tapered dose of ativan. He will plan to take scheduled ativan and gradually decreasing the frequency. Procedures Performed: none Discharge Disposition: Home self care Disposition: Home self-care Condition: Good Discharge Activity: Activity as tolerated Discharge Diet: General/regular food - avoid alcohol Referrals: Moy Araujo DO [Staff Physician] - [facility] [Pharm[facility]] - ([facility]) Problem Oriented Discharge Instructions to Patient/Family: Delirium Tremens, [id number] Additional Patient Instructions (free text): Follow up in Coumadin clinic 08/12 at 10:00. Follow up with Dr. Araujo 08/17 at 11:00 to do paperwork appointment is 11:15. Prescriptions (Any new or edited meds): Folic Acid 1 mg PO DAILY #30 tablet LORazepam [Ativan] 1 mg PO TID #60 tablet Thiamine HCl [Vitamin B-1] 100 mg PO DAILY #30 tablet Complete Home Medications List: Complete Home Medication List: Omeprazole [Prilosec] 20 mg PO DAILY 07/25/17 Potassium Chloride [K-Dur] 20 meq PO DAILY #30 tab 07/25/17 Warfarin Sodium [Coumadin] 5 mg PO DAILY #30 tablet 08/04/17 Folic Acid 1 mg PO DAILY #30 tablet 08/10/17 LORazepam [Ativan] 1 mg PO TID #60 tablet 08/10/17 Thiamine HCl [Vitamin B-1] 100 mg PO DAILY #30 tablet 08/10/17
== END 2017-08-10 14:15 | disposition home or self-care (01) ==
LOC: ER 09:29 → MS 12:02
PROVIDERS: ADMIT Family Medicine; ATTEND Family Medicine
DX: F10.231 Alcohol dependence with withdrawal delirium (principal); E51.2 Wernicke's encephalopathy; I82.4Y1 Acute embolism and thrombosis of unspecified deep veins of right proximal lower extremity; E87.6 Hypokalemia; F17.210 Nicotine dependence, cigarettes, uncomplicated
CPT/HCPCS: 36415; 70450; 71046; 80048; 80053; 80307; 81001; 82140; 82800; 83735; 84100; 84484; 85025; 85610; 93005; 96365; 96375; 96376; 99284; G0378; G0481

== ENCOUNTER 2017-10-16 13:30 | Inpatient (IN) ==
[2017-10-16 15:12] LABS: ALT 74 U/L (19-67); AST 146 U/L (0-48); Albumin * 2.5 gm/dl (3.4-5.0); Alkaline Phosphatase * 52 U/L (50-170); Anion Gap 13.7 mmol/L (6.8-13.8); BUN/Creatinine Ratio 12.9 (9.0-21.6); Bilirubin, Total 1.1 mg/dL (0.0-1.1); Blood Urea Nitrogen 9 mg/dL (6-23); CK Total * 393 U/L (0-259); Ca. Corrected For Albumin 9.5 mg/dL (8.4-10.2); Calcium * 8.6 mg/dL (7.9-10.9); Carbon Dioxide 27.7 mmol/L (24-32.6); Chloride 90 mmol/L (97-106); Glucose * 117 mg/dL (70-110); Potassium 3.4 mmol/L (3.4-4.6); Sodium 128 mmol/L (132-142); Total Protein 5.6 gm/dL (6.2-8.2)
[2017-10-16] MEDS: MULTIVIT INFUSN,ADULT 4,VIT K 10 ML, THIAMINE HCL 100 MG in DEXTROSE 5 % IN WATER 1,000 ML IV SCH ×3 (15:22)
[2017-10-16 15:50] LABS: Mean Cell Volume 103.1 fl (78-100); Mean Corpuscular Hemoglobin 34.6 pg (27-31); Mean Corpuscular Hgb Conc 33.6 g/dl (32-36); NRBC# 0.3 k/mm3 (0-1); Neutrophil # 4.9 K/mm3 (1.3-6.0); Neutrophil % 63.8 % (42-75.0); Platelet Count 133 K/mm3 (150-450); Red Cell Distribution Width 17.7 % (11.5-14.0); White Blood Count 7.7 K/mm3 (4.0-10.5)
[2017-10-16 16:25] LABS: Hemoglobin 4.5 gm/dL (13.5-18.0)
[2017-10-16 16:26] LABS: Hematocrit 13.4 % (42.0-52.0)
[2017-10-16 16:26] LABS: Urine Bilirubin 1 mg/dl (NEGATIVE); Urine Blood Negative /ul (NEGATIVE); Urine Ketone 5 mg/dL (NEGATIVE); Urine Nitrite Negative (NEGATIVE); Urine Protein Negative (NEGATIVE); Urine Urobilinogen Normal (NORMAL)
[2017-10-16 16:35] LABS: Amylase * 46 U/L (25-115); Lipase 178 U/L (73-393)
[2017-10-16 16:43] LABS: Cocaine Ur Negative (NEGATIVE); Urine Barbiturate Negative (NEGATIVE); Urine Benzodiazepines Negative (NEGATIVE); Urine Opiates Negative (NEGATIVE); Urine PCP Negative (NEGATIVE)
[2017-10-16 16:44] LABS: INR Greater than 9.80 INR (0.90-1.10); Partial Thrombolplastin Time 96.5 Seconds (24-32)
[2017-10-16 16:45] LABS: Urine THC Positive (NEGATIVE)
[2017-10-16 17:02] LABS: Urine Appearance Clear (CLEAR); Urine Color Dark Yellow; Urine RBC None Seen /hpf (0-5); Urine WBC None Seen /hpf (0-5)
[2017-10-16 17:03] LABS: Urine Bacteria 1+
--- NOTE | 2017-10-16 17:20 | ERNOTE ---
Dizziness ER Record Date of Service: 10/16/17 Presenting Symptoms: dizziness, weakness, near-fainting Time Seen by Provider: 10/16/17 13:54 Source: patient Exam Limitations: no limitations Immunizations: IMMUNIZATION HX Immunizations Up to Date No History of Influenza Vaccine No Hx Pneumococcal Vaccination No Allergies/Adverse Reactions: Allergies Allergy/AdvReac Type Severity Reaction Status Date / Time No Known Allergies Allergy Verified 10/16/17 13:47 Home Medications: HOME MEDICATIONS Omeprazole [Prilosec] 20 mg PO DAILY 07/25/17 [Last Taken Unknown] Warfarin Sodium [Coumadin] 5 mg PO DAILY #30 tablet 08/04/17 [Last Taken Unknown ] Gabapentin [Neurontin] 600 mg PO BID 10/16/17 [Last Taken Unknown] - History of Present Illness Narrative: patient presents with long hx of chronic alcoholism, has been drinking heavy and has become progressively weaker, reports black stools Timing and Duration: gradual onset Noted on awakening:: No Severity: max: moderate Severity: currently: moderate Associated Symptoms: Present: weakness, light headedness Sense of movement: Present: spinning Fainted/near fainted while:: Present: standing Decreased ability to stand/walk:: Present: weak, off balance Usually:: Present: walks w/o assistance Modifying Factors - (Improves): Reports: nothing Modifying Factors - (Worsens): Reports: nothing Review of Systems - Narrative Narrative: hx of chronic alcoholism - Review of Systems Constitutional: Present: See HPI EYE: Present: no symptoms reported ENT: Present: no symptoms reported Respiratory: Present: no symptoms reported Cardiology: Present: no symptoms reported Gastrointestinal/Abdominal: Present: See HPI, nausea, other - patient c/o black stools for several days Genitourinary: Present: no symptoms reported Musculoskeletal: Present: back pain, muscle pain Skin: Present: See HPI - brusing to buttocks Neurological: Present: no symptoms reported Endocrine: Present: no symptoms reported Hematologic/Lymphatic: Present: no symptoms reported Psych: Present: no symptoms reported All Other Systems: All systems neg except as marked - Narrative Narrative: chronic alcoholism - Patient's Past Medical History Patient History - Medical: Alcohol Abuse, GERD, Other Patient History - Cardiac/Respiratory: No pertinent hx Patient History - Cancer: No Hx of Cancer Patient History - Surgical Procedures: No surgical history, Other Patient History - Other: None - Family History Family History:: no untoward family reactions to anesthesia, no familial bleeding tendencies, no family history of clotting disorders, no family history of premature - Family History Father Family History - Medical: Anxiety, Arthritis, Depression Family History - Cancer: No pertinent family hx Mother Family History - Medical: History Unknown, Alcohol Abuse Family History - Cardiac/Respiratory: No pertinent hx - Social History Living Situations: home Abuse History: Hx of Substance Use Psych History: No pertinent hx, Hx of Anxiety Does anyone smoke in the home?: Yes Smoking Status: Current every day smoker Have you smoked in the past 12 months: Yes Do you dip or chew tobacco: No Patient requests Smoking Cessation Consult: No Initiate information on Smoking Cessation: No Alcohol Use: heavy Drug Use: none - Immunizations Immunizations Up to Date: No Hx Pneumococcal Vaccination: No History of Influenza Vaccine: No Physical Exam - Physical Exam General Appearance: Present: moderate distress, anxious Head Exam: Present: normal inspection, no evidence of injury Eye Exam: Normal inspection: bilateral, PERRL: bilateral, EOMI: bilateral Ears, Nose, Throat: Present: normal ENT inspection Neck: Present: normal inspection, nontender Respiratory: Present: no respiratory distress, normal breath sounds, no accessory muscle use, chest nontender, lungs clear Cardiovascular/Chest: Present: regular rate, rhythm, no murmur, normal peripheral pulses Peripheral Pulses: N=norm/S=strong/W=weak/B=bound/A=absent: Carotid (R): Normal , Carotid (L): Normal, Radial (R): Normal, Radial (L): Normal, Femoral (R): Normal, Femoral (L): Normal Gastrointestinal/Abdominal: Present: nontender, nondistended Rectal Exam: Present: black stool Male Genitals Exam: Present: normal genitalia Back Exam: Present: other - brusing to backand buttocks Neurological Exam: Present: alert, oriented, normal mood/affect, no motor/ sensory deficits DTR: N=norm/NB=norm/brisk/A=abs/DD=dull/dimin/HC=hyperactive: Bicep (R): Normal , Bicep (L): Normal, Tricep (R): Normal, Tricep (L): Normal, Knee (R): Normal, Knee (L): Normal, Ankle (R): Normal, Ankle (L): Normal Skin Exam: Present: other - diffuse brusing to back and buttocks ED Progress - Date and Time Seen: Date and Time: 10/16/17 17:15 patient revals that dizzyness has improved - Results and Orders Patient's Lab Results:: I have reviewed the patient's lab results. - Vital Signs Patient's Vital Signs:: I have reviewed the patient's vital signs. Vital Signs: Vital Signs 10/16/17 10/16/17 10/16/17 13:35 14:17 15:00 Temperature 36.9 C Pulse Rate 115 H 101 H 107 H Respiratory 15 18 12 Rate Blood Pressure 108/69 115/65 117/71 O2 Sat by Pulse 100 92 93 Oximetry 10/16/17 10/16/17 10/16/17 16:00 16:30 16:54 Temperature Pulse Rate 99 103 H 99 Respiratory 11 L 14 14 Rate Blood Pressure 113/69 96/57 98/66 O2 Sat by Pulse 91 92 Oximetry - X-Ray X-Ray #1 X-Ray: pelvis - no acute process Interpretation: Discd w/ radiologist - CT/Ultrasound CT/Ultrasound Narrative: ct head negative - Progress/Reassessment Chief Complaint: Dizziness Progress:: Improved - Transfer of Care Expected Disposition: Admit Plan - Plan Plan: case discussed with dr pro who accepts patiet for admission, ffp anf prbcs ordered and pendiing Departure Clinical Impression: GIB (gastrointestinal bleeding), Liver failure, Alcoholism /alcohol abuse - Departure Disposition: Still a patient Condition: Serious
--- NOTE | 2017-10-16 21:12 | HP ---
Chief Complaint - Chief Complaint Date of Service: 10/16/17 Time of Service: 21:11 Chief Complaint: "Leg pain, numbness and tingling". Source of HPI- Pt; reliable History of Present Illness: is a 47-yr-old with PMH of DVT, GERD & Peripheral Vascular disease. He rarely seeks medical care. He has chronic alcohol dependence. He came to the [facility] ER with reports of numbness and tingling in his BLE. He has been feeling very weak and fell a few days ago, but denies any joint pain. He reports noting black stools within the last two days. He denies hematemesis and hematochezia. He denies fevers, chills, SOB, Chest pain and palpitations. He states the reason he came to the ED was mostly due to the pain on his legs. At the ED, he had notable abnormal labs as follows: Laboratory Tests 10/16/17 10/16/17 10/16/17 14:35 14:35 14:35 RBC 1.30 L Hgb 4.5 L* D Hct 13.4 L* D MCV 103.1 H MCH 34.6 H INR (Anticoag Therapy) Greater than 9.80 H* Sodium 128 L Plasma Sodium 128 L Of note pt presented to the [facility] on 08/04/17 for RT leg swelling. He was found to have DVT and started on Anticoagulation with Warfarin. He was counselled on relevance of cessation of alcohol consumption while on anticoagulants. Pt states that he has continued to drink. He goes through a fifth of Vodka over the weekend and during the weekdays, he cuts back to 1 pint as he has to work. He is unsure if he has been taking Coumadin. He states that he ran out of the medication. The Head CT and Pelvis X-ray did not have any acute findings. Pt will be admitted for blood transfusion, further evaluation of Anemia, Hyponatremia and to reverse over-anticoagulation. . - Patient's Past Medical History Patient History - Medical: Alcohol Abuse, GERD Patient History - Cardiac/Respiratory: Deep Vein Thrombosis Patient History - Cancer: No Hx of Cancer Patient History - Surgical Procedures: No surgical history Patient History - Other: None - Family History Family History:: no untoward family reactions to anesthesia, no familial bleeding tendencies, no family history of clotting disorders, no family history of premature - Family History Father Family History - Medical: Anxiety, Arthritis, Depression Family History - Cancer: No pertinent family hx Mother Family History - Medical: History Unknown, Alcohol Abuse Family History - Cardiac/Respiratory: No pertinent hx - Social History Living Situations: alone Abuse History: Hx of Substance Use Psych History: No pertinent hx, Hx of Anxiety Does anyone smoke in the home?: Yes Smoking Status: Current some day smoker Have you smoked in the past 12 months: Yes Do you dip or chew tobacco: No Patient requests Smoking Cessation Consult: No Initiate information on Smoking Cessation: No Alcohol Use: heavy Drug Use: none - Immunizations Immunizations Up to Date: No Hx Pneumococcal Vaccination: No History of Influenza Vaccine: No Review Of Systems (GEN) - Review of Systems Generalized/Overall Review: Present: Weakness. Absent: Chills, Fever, Diaphoresis EENTM: Absent: Eye Pain, Blurred Vision, Tearing Respiratory: Absent: Cough, Shortness of Breath Cardiac: Absent: Chest Pain, Edema, Palpitations Abdominal: Absent: Nausea, Vomiting Genitourinary: Absent: Burning, Itching, Urgency, Frequency Musculoskeletal: Absent: Joint Pain, Back Pain, Joint Swelling Neurological: Absent: Headache, Anxiety, Depressed, Numbness Skin: Absent: Dryness, Lesions Endocrine: Absent: Intolerance to Cold, Increased Thirst Misc: All systems neg except as marked Immunizations: IMMUNIZATION HX Immunizations Up to Date No History of Influenza Vaccine No Hx Pneumococcal Vaccination No Allergies/Adverse Reactions: Allergies Allergy/AdvReac Type Severity Reaction Status Date / Time No Known Allergies Allergy Verified 10/16/17 13:47 Home Medications: HOME MEDICATIONS Omeprazole [Prilosec] 20 mg PO DAILY 07/25/17 [Last Taken Unknown] Warfarin Sodium [Coumadin] 5 mg PO DAILY #30 tablet 08/04/17 [Last Taken Unknown ] Gabapentin [Neurontin] 600 mg PO BID 10/16/17 [Last Taken Unknown] Exam - Exam Vital Signs: Vital Signs - Last Taken Temp 37.2 C 10/16/17 19:24 Pulse 110 H 10/16/17 19:24 Resp 16 10/16/17 19:24 BP 112/62 10/16/17 19:24 Pulse Ox 100 10/16/17 19:24 Constitutional: Present: Alert, Oriented x3, Cooperative, No distress ENT Exam: Present: normal ENT inspection Eye Exam: bilateral eye: normal inspection, PERRL Neck: Present: non-tender, full range of motion, supple Back Exam: Present: normal inspection, no CVA tenderness Breasts: Present: Exam deferred Respiratory: Present: no respiratory distress, no accessory muscle use, No wheezing Cardiovascular/Chest: Present: normal peripheral pulses, regular rate, rhythm, no chest tenderness Abdomen: Present: Normal bowel sounds, soft, nontender /Rectal: Present: Exam deferred Extremity: Present: normal range of motion, non-tender, normal inspection Skin Exam: Present: warm/dry, no cyanosis Lymphatic: Present: no adenopathy Neurologic: Present: alert, normal mood/affect Appearance: Present: appropriate appearance, appropriate insight Eye contact: Present: cooperative, good eye contact, normal speech Thoughts: Present: normal thought pattern, no apparent hallucination Diagnostic Studies: Laboratory Results WBC 7.7 K/mm3 (4.0-10.5) 10/16/17 14:35 RBC 1.30 M/mm3 (4.7-6.0) L 10/16/17 14:35 Hgb 4.5 gm/dL (13.5-18.0) L* D 10/16/17 14:35 Hct 13.4 % (42.0-52.0) L* D 10/16/17 14:35 MCV 103.1 fl (78-100) H 10/16/17 14:35 MCH 34.6 pg (27-31) H 10/16/17 14:35 MCHC 33.6 g/dl (32-36) 10/16/17 14:35 RDW 17.7 % (11.5-14.0) H 10/16/17 14:35 Plt Count 133 K/mm3 (150-450) L 10/16/17 14:35 MPV 10.0 fl (6.0-9.5) H 10/16/17 14:35 Immature Gran % (Auto) 4.00 % (0.001-0.429) H 10/16/17 14:35 Immature Gran # (Auto) 0.31 K/mm3 (0.000-0.0310) H 10/16/17 14:35 Neutrophils % 63.8 % (42-75.0) 10/16/17 14:35 Lymphocytes % 19.6 % (20-51) L 10/16/17 14:35 Monocytes % 12.5 % (0.0-9) H 10/16/17 14:35 Eosinophils % 0.0 % (0.0-3.0) 10/16/17 14:35 Basophils % 0.1 % (0.0-1.0) 10/16/17 14:35 Nucleated RBC % 0.3 k/mm3 (0-1) 10/16/17 14:35 Neutrophils # 4.9 K/mm3 (1.3-6.0) 10/16/17 14:35 Lymphocytes # 1.51 k/mm3 (1.5-3.5) 10/16/17 14:35 Monocytes # 1.0 k/mm3 (0.0-1.0) 10/16/17 14:35 Eosinophils # 0.0 k/mm3 (0.0-0.7) 10/16/17 14:35 Absolute Basophils 0.0 k/mm3 (0.0-0.1) 10/16/17 14:35 PT Greater than 100.0 Seconds (9.0-11.0) H 10/16/17 14:35 INR (Anticoag Therapy) Greater than 9.80 INR (0.90-1.10) H* 10/16/17 14:35 PTT ([place]han) 96.5 Seconds (24-32) H 10/16/17 14:35 Sodium 128 mmol/L (132-142) L 10/16/17 14:35 Plasma Sodium 128 mmol/L (130-142) L 10/16/17 14:35 Potassium 3.4 mmol/L (3.4-4.6) 10/16/17 14:35 Chloride 90 mmol/L (97-106) L 10/16/17 14:35 Carbon Dioxide 27.7 mmol/L (24-32.6) 10/16/17 14:35 Anion Gap 13.7 mmol/L (6.8-13.8) 10/16/17 14:35 BUN 9 mg/dL (6-23) D 10/16/17 14:35 Creatinine 0.70 mg/dL (0.4-1.4) 10/16/17 14:35 Est GFR (Non-Af Amer) 129 mL/min (60-130) D 10/16/17 14:35 BUN/Creatinine Ratio 12.9 (9.0-21.6) 10/16/17 14:35 Random Glucose 117 mg/dL (70-110) H 10/16/17 14:35 Calcium 8.6 mg/dL (7.9-10.9) 10/16/17 14:35 Calcium Adj for Albumin 9.5 mg/dL (8.4-10.2) 10/16/17 14:35 Total Bilirubin 1.1 mg/dL (0.0-1.1) 10/16/17 14:35 AST 146 U/L (0-48) H 10/16/17 14:35 ALT 74 U/L (19-67) H 10/16/17 14:35 Alkaline Phosphatase 52 U/L (50-170) 10/16/17 14:35 Creatine Kinase 393 U/L (0-259) H 10/16/17 14:35 CK-MB (CK-2) Less than 0.5 ng/mL (0.0-9.0) 10/16/17 14:35 Total Protein 5.6 gm/dL (6.2-8.2) L 10/16/17 14:35 Albumin 2.5 gm/dl (3.4-5.0) L 10/16/17 14:35 Amylase 46 U/L (25-115) 10/16/17 14:35 Lipase 178 U/L (73-393) 10/16/17 14:35 Urine Color Dark yellow 10/16/17 15:27 Urine Appearance Clear (CLEAR) 10/16/17 15:27 Urine pH 6.0 pH (5.0-7.0) 10/16/17 15:27 Ur Specific [place] 1.010 SP.GR. (1.005-1.030) 10/16/17 15:27 Urine Protein Negative mg/dL (NEGATIVE) 10/16/17 15:27 Urine Glucose (UA) Negative mg/dL (NEGATIVE) 10/16/17 15:27 Urine Ketones 5 mg/dL (NEGATIVE) 10/16/17 15:27 Urine Blood Negative /ul (NEGATIVE) 10/16/17 15:27 Urine Nitrate Negative (NEGATIVE) 10/16/17 15:27 Urine Bilirubin 1 mg/dl (NEGATIVE) H 10/16/17 15:27 Urine Ictotest Positive (NEGATIVE) H 10/16/17 15:27 Urine Urobilinogen Normal EU/dl (NORMAL) 10/16/17 15:27 Ur Leukocyte Esterase Negative /ul (NEGATIVE) 10/16/17 15:27 Urine RBC None seen /hpf (0-5) 10/16/17 15:27 Urine WBC None seen /hpf (0-5) 10/16/17 15:27 Ur Epithelial Cells Trace /hpf (0-5) 10/16/17 15:27 Urine Bacteria 1+ (NONE) H 10/16/17 15:27 Urine Culture Comments No culture indicated 10/16/17 15:27 Urine Opiates Screen Negative (NEGATIVE) 10/16/17 15:27 Barbiturate Screen Negative (NEGATIVE) 10/16/17 15:27 Ur Phencyclidine Scrn Negative (NEGATIVE) 10/16/17 15:27 Urine Amphetamine Negative (NEGATIVE) 10/16/17 15:27 U Benzodiazepines Scrn Negative (NEGATIVE) 10/16/17 15:27 Urine Cocaine Screen Negative (NEGATIVE) 10/16/17 15:27 Urine Marijuana (THC) Positive (NEGATIVE) H 10/16/17 15:27 Ethyl Alcohol 5.0 mg/dL (0.0-10.0) 10/16/17 Unknown Blood Type O Positive 10/16/17 16:00 Antibody Screen Negative 10/16/17 16:00 Crossmatch See Detail 10/16/17 16:00 Assessment/Plan - Assessment/Plan (1) GI bleeding Assessment: Reports of black stool, pt is on anticoagulants. Occult blood stool pending. Place on clear liquids. Consult Surgery for an endoscopic procedure. Problem: Acute (2) Anemia Assessment: Is likely due to blood loss given hx of ETOH Abuse and reported blacks stool. Will check occult blood stools. Will transfuse to a goal of 9. He will be started on PPI as he has a high risk of PUD which could be bleeding. Laboratory Tests 08/10/17 10/01/17 10/16/17 05:20 10:42 14:35 Hgb 10.6 L 15.3 4.5 L* D AST ALT Albumin Problem: Acute (3) Hyponatremia Assessment: Likely due to chronic alcoholism. Hydrate with IVF. BMP in am. Problem: Acute (4) Supratherapeutic INR Assessment: Given 2 units of FFP. Monitor INR. Laboratory Tests 10/16/17 14:35 PT Greater than 100.0 H INR (Anticoag Therapy) Greater than 9.80 H* PTT (Eva) 96.5 H Problem: Acute (5) Transaminitis Problem: Acute (6) DVT (deep venous thrombosis) Assessment: Hold Coumadin. Place on telemetry monitoring. He is not ready to give up his drinking. Therefore, may need to evaluate the benefit and risk of anticoagulation given his alcohol abuse. Problem: Chronic (7) Alcohol dependence Assessment: Drinks on a daily basis. Has been hospitalized for alcohol withdrawal symptoms in the past. He will be placed on [facility] Protocol to manage his signs of Alcohol withdrawal. Problem: Chronic (8) PVD (peripheral vascular disease) Assessment: Continue Neurontin 600 b.i.d Problem: Chronic
[2017-10-16] MEDS ORDERED: GABAPENTIN 300 MG CAPSULE PO SCH (21:45)
[2017-10-16] MEDS ORDERED: GABAPENTIN 300 MG CAPSULE ONE (22:09)
[2017-10-16] MEDS: GABAPENTIN 600 MG TABLET PO SCH (22:25)
[2017-10-16] MEDS ORDERED: LORazepam 2 MG/ML DISP.SYRIN IV PRN ×3 (22:50)
[2017-10-16] MEDS ORDERED: LORazepam 2 MG/ML DISP.SYRIN IV SCH (23:00)
[2017-10-16] MEDS: HYDROcodone/ACETAMINOPHEN 1 EACH TABLET PO PRN (23:29)
[2017-10-17] MEDS: PANTOPRAZOLE SODIUM 40 MG in NORMAL SALINE 100 ML IV SCH ×3 (00:03→22:37)
--- NOTE | 2017-10-17 05:02 | PN ---
Subjective - Date and Time Seen Date: 10/17/17 Time: 05:02 Subjective Narrative: Pt seen this am. Is complaining of numbness and tingling of his BLE. Received 2 units FFP and PRBC. No other acute events overnight. Will be given vitamin K . Objective - Vitals Vitals: Last Vital Signs Temp 37.2 C 10/17/17 04:18 Pulse 91 10/17/17 04:21 Resp 16 10/17/17 04:18 BP 120/67 10/17/17 04:18 Pulse Ox 97 10/17/17 04:18 - Exam Constitutional: Present: Alert, Oriented x3, Cooperative, No distress ENT Exam: Present: normal ENT inspection Neck: Present: non-tender, full range of motion, supple Breasts: Present: Exam deferred Respiratory: Present: No rales, No wheezing Cardiovascular/Chest: Present: normal peripheral pulses, regular rate, rhythm, no chest tenderness Abdomen: Present: Normal bowel sounds, soft, nontender /Rectal: Present: Exam deferred Extremity: Present: normal range of motion, non-tender, normal inspection Skin Exam: Present: no cyanosis Lymphatic: Present: no adenopathy Neurologic: Present: alert, normal mood/affect, oriented x 3 Appearance: Present: appropriate appearance, appropriate insight Eye contact: Present: cooperative, good eye contact, normal speech Thoughts: Present: normal thought pattern, no apparent hallucination Assessment/Plan - Problems/Diagnosis (1) GI bleeding Problem: Acute Narrative: Reports of black stool, pt is on anticoagulants. Occult blood stool pending. Place on clear liquids. Consult Surgery for an endoscopic procedure. (2) Anemia Problem: Acute Narrative: Is likely due to blood loss given hx of ETOH Abuse and reported blacks stool. Will check occult blood stools. Will transfuse to a goal of 9. He will be started on PPI as he has a high risk of PUD which could be bleeding. Laboratory Tests 08/10/17 10/01/17 10/16/17 05:20 10:42 14:35 Hgb 10.6 L 15.3 4.5 L* D (3) Hyponatremia Problem: Acute Narrative: Likely due to chronic alcoholism. Hydrate with IVF. BMP in am. (4) Supratherapeutic INR Problem: Acute Narrative: Given 2 units of FFP. Monitor INR. (5) Hypokalemia Problem: Acute Narrative: Give Oral replacement. Laboratory Tests 10/16/17 10/17/17 14:35 08:34 Potassium 3.4 2.9 L (6) Transaminitis Problem: Acute (7) DVT (deep venous thrombosis) Problem: Chronic Narrative: Hold Coumadin. Place on telemetry monitoring. He is not ready to give up his drinking. Therefore, may need to evaluate the benefit and risk of anticoagulation given his alcohol abuse. (8) Alcohol dependence Problem: Chronic Narrative: Drinks on a daily basis. Has been hospitalized for alcohol withdrawal symptoms in the past. He will be placed on [facility] Protocol to manage his signs of Alcohol withdrawal. (9) PVD (peripheral vascular disease) Problem: Chronic Narrative: Continue Neurontin 600 b.i.d
[2017-10-17] MEDS: HYDROcodone/ACETAMINOPHEN 1 EACH TABLET PO PRN ×4 (05:40→22:17)
[2017-10-17] MEDS ORDERED: OMEPRAZOLE 20 MG CAPSULE.SA PO SCH (07:00)
[2017-10-17] MEDS ORDERED: PHYTONADIONE (VIT K1) 10 MG/ML AMPUL SC ONE (07:11)
[2017-10-17] MEDS: MULTIVITAMINS 1 CAP CAPSULE PO SCH (08:19)
[2017-10-17] MEDS: GABAPENTIN 600 MG TABLET PO SCH ×2 (08:19→21:38)
[2017-10-17] MEDS: FOLIC ACID 1 MG TABLET PO SCH (08:19)
[2017-10-17] MEDS: THIAMINE HCL 100 MG TABLET PO SCH (08:19)
[2017-10-17 08:39] LABS: Hematocrit 25.1 % (42.0-52.0); Hemoglobin 8.4 gm/dL (13.5-18.0); Mean Cell Volume 92.6 fl (78-100); Mean Corpuscular Hgb Conc 33.5 g/dl (32-36); Mean Platelet Volume 9.9 fl (6.0-9.5); NRBC# 0.2 k/mm3 (0-1); Neutrophil # 3.8 K/mm3 (1.3-6.0); Platelet Count 118 K/mm3 (150-450); Red Blood Count 2.71 M/mm3 (4.7-6.0); Red Cell Distribution Width 18.5 % (11.5-14.0); White Blood Count 5.5 K/mm3 (4.0-10.5)
[2017-10-17 08:47] LABS: Prothrombin Time (Patient) 32.1 Seconds (9.0-11.0)
[2017-10-17 09:06] LABS: INR 3.17 INR (0.90-1.10)
[2017-10-17 09:23] LABS: Anion Gap 11.2 mmol/L (6.8-13.8); BUN/Creatinine Ratio 6.5 (9.0-21.6); Calcium * 7.8 mg/dL (7.9-10.9); Carbon Dioxide 29.7 mmol/L (24-32.6); Estimated Creat Clear 148.9; Potassium 2.9 mmol/L (3.4-4.6)
[2017-10-17] MEDS ORDERED: POTASSIUM CHLORIDE 20 MEQ TABLET.SA PO ONE ×2 (14:39→21:00)
[2017-10-17] MEDS: MULTIVIT INFUSN,ADULT 4,VIT K 10 ML, THIAMINE HCL 100 MG in DEXTROSE 5 % IN WATER 1,000 ML IV SCH ×3 (14:49)
[2017-10-18] MEDS: HYDROcodone/ACETAMINOPHEN 1 EACH TABLET PO PRN ×6 (02:30→23:47)
[2017-10-18 05:12] LABS: Hematocrit 25.1 % (42.0-52.0); Hemoglobin 8.1 gm/dL (13.5-18.0); Mean Cell Volume 94.4 fl (78-100); Mean Corpuscular Hemoglobin 30.5 pg (27-31); Mean Corpuscular Hgb Conc 32.3 g/dl (32-36); Mean Platelet Volume 9.4 fl (6.0-9.5); NRBC# 0.1 k/mm3 (0-1); Neutrophil # 3.1 K/mm3 (1.3-6.0); Neutrophil % 55.7 % (42-75.0); Platelet Count 132 K/mm3 (150-450); Red Blood Count 2.66 M/mm3 (4.7-6.0); Red Cell Distribution Width 20.1 % (11.5-14.0); White Blood Count 5.6 K/mm3 (4.0-10.5)
[2017-10-18 05:23] LABS: Anion Gap 8.9 mmol/L (6.8-13.8); BUN/Creatinine Ratio 5.3 (9.0-21.6); Calcium * 8.4 mg/dL (7.9-10.9); Carbon Dioxide 30.8 mmol/L (24-32.6); Estimated Creat Clear 161.9; Potassium 3.7 mmol/L (3.4-4.6)
[2017-10-18] MEDS ORDERED: PANTOPRAZOLE SODIUM 20 MG TABLET.DR PO SCH (07:00)
[2017-10-18] MEDS: MULTIVITAMINS 1 CAP CAPSULE PO SCH (08:29)
[2017-10-18] MEDS: THIAMINE HCL 100 MG TABLET PO SCH (08:29)
[2017-10-18] MEDS: FOLIC ACID 1 MG TABLET PO SCH (08:30)
[2017-10-18] MEDS: GABAPENTIN 600 MG TABLET PO SCH ×3 (08:30→16:44)
[2017-10-18] MEDS: PANTOPRAZOLE SODIUM 40 MG in NORMAL SALINE 100 ML IV SCH ×2 (11:05→23:28)
--- NOTE | 2017-10-18 19:24 | PN ---
Subjective - Date and Time Seen Date: 10/18/17 Time: 06:12 Subjective Narrative: Pt seen this am. Is complaining of RT pain. Has been ambulating well. Feels hungry and wants reg diet. Has extensive bruising on RT leg/hip. No other acute events overnight. Objective - Vitals Vitals: Last Vital Signs Temp 36.8 C 10/18/17 14:12 Pulse 93 10/18/17 14:15 Resp 20 10/18/17 14:12 BP 108/70 10/18/17 14:12 Pulse Ox 99 10/18/17 14:12 - Abnormal Lab Findings Abnormal Lab Findings: Abnormal Lab Results 10/18/17 10/18/17 Range/Units 04:55 04:55 RBC 2.66 L (4.7-6.0) M/mm3 Hgb 8.1 L (13.5-18.0) gm/dL Hct 25.1 L (42.0-52.0) % RDW 20.1 H (11.5-14.0) % Plt Count 132 L (150-450) K/mm3 Immature Gran % (Auto) 2.00 H (0.001-0.429) % Immature Gran # (Auto) 0.11 H (0.000-0.0310) K/mm3 Monocytes % 12.6 H (0.0-9) % BUN 3 L (6-23) mg/dL Est GFR (Non-Af Amer) 164 H (60-130) mL/min BUN/Creatinine Ratio 5.3 L (9.0-21.6) - Exam Constitutional: Present: Alert, Oriented x3, Cooperative, No distress ENT Exam: Present: normal ENT inspection Neck: Present: non-tender, full range of motion Respiratory: Present: chest non-tender, No rales, No wheezing Cardiovascular/Chest: Present: normal peripheral pulses, regular rate, rhythm, no chest tenderness, no edema Abdomen: Present: Normal bowel sounds, soft, nontender /Rectal: Present: Exam deferred Extremity: Present: normal range of motion, non-tender, normal inspection Skin Exam: Present: warm/dry, other - Ecchymosis on RT leg/hip Lymphatic: Present: no adenopathy Neurologic: Present: alert, normal mood/affect, oriented x 3 Appearance: Present: appropriate appearance, appropriate insight Eye contact: Present: cooperative, good eye contact, normal speech Thoughts: Present: normal thought pattern, no apparent hallucination Assessment/Plan - Problems/Diagnosis (1) GI bleeding Problem: Acute Narrative: Reports of black stool on admission, pt is on anticoagulants. Occult blood stool pending. May need an endoscopic procedure out pt.. (2) Anemia Problem: Acute Narrative: Is likely due to blood loss given hx of ETOH Abuse and reported blacks stool. Will check occult blood stools. Will transfuse to a goal of 9. He will be started on PPI as he has a high risk of PUD which could be bleeding. Laboratory Tests 10/01/17 10/16/17 10/17/17 10:42 14:35 08:34 Hgb 15.3 4.5 L* D 8.4 L 10/18/17 04:55 Hgb 8.1 L 10/18- Pt determined to have a Subcutaneous Hematomas on the RT leg, hip & thigh.? blood loss due to this. (3) Subcutaneous hematoma Problem: Acute Narrative: (4) Hyponatremia Problem: Acute Narrative: Likely due to chronic alcoholism. resolved with IVF. BMP in am. (5) Supratherapeutic INR Problem: Acute Narrative: Given 2 units of FFP & Vitamin K, Monitor INR. (6) Hypokalemia Problem: Acute (7) Transaminitis Problem: Acute (8) DVT (deep venous thrombosis) Problem: Chronic Narrative: Hold Coumadin. Place on telemetry monitoring. He is not ready to give up his drinking. Therefore, may need to evaluate the benefit and risk of anticoagulation given his alcohol abuse (9) Alcohol dependence Problem: Chronic Narrative: Drinks on a daily basis. Has been hospitalized for alcohol withdrawal symptoms in the past. He will be placed on [facility] Protocol to manage his signs of Alcohol withdrawal. (10) PVD (peripheral vascular disease) Problem: Chronic Narrative: Continue Neurontin 600 b.i.d, 10/18- changed to t.i.d.
[2017-10-19] MEDS: HYDROcodone/ACETAMINOPHEN 1 EACH TABLET PO PRN ×5 (04:05→22:14)
--- NOTE | 2017-10-19 05:20 | PN ---
Subjective - Date and Time Seen Date: 10/19/17 Time: 05:19 Subjective Narrative: Pt seen this morning. No new complaints. Hgb low. at 7.5. No other acute events overnight. Objective - Vitals Vitals: Last Vital Signs Temp 37.0 C 10/19/17 04:30 Pulse 91 10/19/17 04:30 Resp 16 10/19/17 04:30 BP 106/70 10/19/17 04:30 Pulse Ox 99 10/19/17 04:30 - Abnormal Lab Findings Abnormal Lab Findings: Abnormal Lab Results 10/18/17 10/18/17 Range/Units 04:55 04:55 RBC 2.66 L (4.7-6.0) M/mm3 Hgb 8.1 L (13.5-18.0) gm/dL Hct 25.1 L (42.0-52.0) % RDW 20.1 H (11.5-14.0) % Plt Count 132 L (150-450) K/mm3 Immature Gran % (Auto) 2.00 H (0.001-0.429) % Immature Gran # (Auto) 0.11 H (0.000-0.0310) K/mm3 Monocytes % 12.6 H (0.0-9) % BUN 3 L (6-23) mg/dL Est GFR (Non-Af Amer) 164 H (60-130) mL/min BUN/Creatinine Ratio 5.3 L (9.0-21.6) - Exam Constitutional: Present: Alert, Oriented x3, Cooperative, No distress ENT Exam: Present: normal ENT inspection Neck: Present: non-tender, full range of motion, supple Breasts: Present: Exam deferred Respiratory: Present: lungs clear Cardiovascular/Chest: Present: normal peripheral pulses, regular rate, rhythm, no chest tenderness Abdomen: Present: Normal bowel sounds, soft /Rectal: Present: Exam deferred Extremity: Present: lower extremity edema - RT leg, other Skin Exam: Present: other - Ecchymosis on RT leg/hip Lymphatic: Present: no adenopathy Neurologic: Present: no motor/sensory deficits, alert, normal mood/affect, oriented x 3, dizzy/light-headedness Appearance: Present: appropriate appearance, appropriate insight Eye contact: Present: cooperative, good eye contact, normal speech Thoughts: Present: normal thought pattern, no apparent hallucination Assessment/Plan - Problems/Diagnosis (1) GI bleeding Problem: Acute Narrative: Reports of black stool on admission, pt is on anticoagulants. Occult blood stool pending. May need an endoscopic procedure out pt.. (2) Anemia Problem: Acute Narrative: Is likely due to blood loss given hx of ETOH Abuse and reported blacks stool. Will check occult blood stools. Will transfuse to a goal of 9. He will be started on PPI as he has a high risk of PUD which could be bleeding. 10/18- Pt determined to have a Subcutaneous Hematomas on the RT leg, hip & thigh.? blood loss due to this. 10/19- Will transfuse 1 unit of PRBC. Laboratory Tests 10/01/17 10/16/17 10/17/17 10:42 14:35 08:34 Hgb 15.3 4.5 L* D 8.4 L 10/18/17 04:55 Hgb 8.1 L 10/19/17 05:40 Hgb 7.5 L* (3) Subcutaneous hematoma Problem: Acute Narrative: Will get reabsorbed slowly. (4) Hyponatremia Problem: Resolved Narrative: Likely due to chronic alcoholism. resolved with IVF. BMP in am. (5) Supratherapeutic INR Problem: Acute Narrative: Given 2 units of FFP & Vitamin K, Monitor INR. (6) Hypokalemia Problem: Acute (7) Transaminitis Problem: Acute (8) DVT (deep venous thrombosis) Problem: Chronic Narrative: Hold Coumadin. Place on telemetry monitoring. He is not ready to give up his drinking. Therefore, may need to evaluate the benefit and risk of anticoagulation given his alcohol abuse (9) Alcohol dependence Problem: Chronic Narrative: Drinks on a daily basis. Has been hospitalized for alcohol withdrawal symptoms in the past. He will be placed on [facility] Protocol to manage his signs of Alcohol withdrawal. (10) PVD (peripheral vascular disease) Problem: Chronic Narrative: Continue Neurontin 600 b.i.d, 10/18- changed to t.i.d.
[2017-10-19 05:45] LABS: Mean Cell Volume 97.1 fl (78-100); Mean Corpuscular Hgb Conc 31.9 g/dl (32-36); Mean Platelet Volume 8.8 fl (6.0-9.5); Neutrophil # 2.6 K/mm3 (1.3-6.0); Neutrophil % 55.3 % (42-75.0); Platelet Count 136 K/mm3 (150-450); Red Blood Count 2.42 M/mm3 (4.7-6.0); Red Cell Distribution Width 20.4 % (11.5-14.0); White Blood Count 4.7 K/mm3 (4.0-10.5)
[2017-10-19 05:53] LABS: Anion Gap 6.9 mmol/L (6.8-13.8); BUN/Creatinine Ratio 9.5 (9.0-21.6); Calcium * 8.4 mg/dL (7.9-10.9); Carbon Dioxide 31.8 mmol/L (24-32.6); Estimated Creat Clear 146.5; Potassium 3.7 mmol/L (3.4-4.6); Prothrombin Time (Patient) 20.1 Seconds (9.0-11.0)
[2017-10-19 05:57] LABS: Hematocrit 23.5 % (42.0-52.0); Hemoglobin 7.5 gm/dL (13.5-18.0)
[2017-10-19] MEDS: THIAMINE HCL 100 MG TABLET PO SCH (08:25)
[2017-10-19] MEDS: GABAPENTIN 600 MG TABLET PO SCH ×3 (08:25→18:07)
[2017-10-19] MEDS: MULTIVITAMINS 1 CAP CAPSULE PO SCH (08:25)
[2017-10-19] MEDS: FOLIC ACID 1 MG TABLET PO SCH (08:25)
[2017-10-19] MEDS ORDERED: CYANOCOBALAMIN 1,000 MCG/ML VIAL IM SCH (10:45)
[2017-10-19] MEDS: PANTOPRAZOLE SODIUM 40 MG TABLET.EC PO SCH (13:01)
[2017-10-19] MEDS: CYANOCOBALAMIN 1,000 MCG TABLET PO SCH (15:01)
[2017-10-20] MEDS: HYDROcodone/ACETAMINOPHEN 1 EACH TABLET PO PRN ×3 (03:17→12:29)
[2017-10-20 05:45] LABS: Hemoglobin 8.6 gm/dL (13.5-18.0); Mean Cell Volume 95.4 fl (78-100); Mean Corpuscular Hemoglobin 30.4 pg (27-31); Mean Corpuscular Hgb Conc 31.9 g/dl (32-36); Neutrophil # 2.1 K/mm3 (1.3-6.0); Neutrophil % 47.6 % (42-75.0); Platelet Count 183 K/mm3 (150-450); Red Blood Count 2.83 M/mm3 (4.7-6.0); Red Cell Distribution Width 20.9 % (11.5-14.0); White Blood Count 4.5 K/mm3 (4.0-10.5)
[2017-10-20] MEDS: PANTOPRAZOLE SODIUM 40 MG TABLET.EC PO SCH (06:33)
[2017-10-20] MEDS: GABAPENTIN 600 MG TABLET PO SCH (09:14)
[2017-10-20] MEDS: FOLIC ACID 1 MG TABLET PO SCH (09:14)
[2017-10-20] MEDS: CYANOCOBALAMIN 1,000 MCG TABLET PO SCH (09:14)
[2017-10-20] MEDS: MULTIVITAMINS 1 CAP CAPSULE PO SCH (09:14)
[2017-10-20] MEDS: THIAMINE HCL 100 MG TABLET PO SCH (09:15)
--- NOTE | 2017-10-20 11:57 | DS ---
Description of Stay: Mark Raines is a 47-yr-old with PMH of DVT, GERD & Peripheral Vascular disease who was admitted by Dr. Simmons on 10/16/2017 weakness and numbness and tingling. He rarely seeks medical care. He has chronic alcohol dependence. He came to the [facility] ER with reports of numbness and tingling in his BLE. He has been feeling very weak and fell a few days ago, but denies any joint pain. He reports noting black stools within the last two days. He denies hematemesis and hematochezia. He denies fevers, chills, SOB, Chest pain and palpitations. He states the reason he came to the ED was mostly due to the pain on his legs. At the ED, he had notable abnormal labs -Hb 4.5, INR >9.8. He received 4 units of PRBC/2 units FFP and his Hb is now 8.7. He also had a fall 1 week before his admission and had big bruise-contusion hematoma on his right lower extremity which contributed to his anemia. He is stable to be discharged to home and can follow up with Dr. Simmons x 1. He needs to establish with a PCP and I recommended for him to see a psychiatrist/psychologist for his depression and alcohol dependence and possible EGD . Will stop his Coumadin due to his increased risk for falls and the fact that it is almost 3 months anyway. Reviewing his US on 2017- it read no evidence of LE DVT, small thrombus within peroneal and anterior tibial veins. . Procedures Performed: none Discharge Location: Home Disposition: Home self-care Condition: Stable Discharge Activity: Activity as tolerated Discharge Diet: General/regular food Prescriptions (Any new or edited meds): Acetaminophen [Tylenol] 500 mg PO QID PRN #60 tablet PRN Reason: Pain Complete Home Medications List: Complete Home Medication List: Omeprazole [Prilosec] 20 mg PO DAILY 07/25/17 Gabapentin [Neurontin] 600 mg PO BID 10/16/17 Acetaminophen [Tylenol] 500 mg PO QID PRN #60 tablet 10/20/17 Cyanocobalamin [Vitamin B-12] 1,000 mcg PO DAILY tablet 10/20/17 Folic Acid 1 mg PO DAILY tablet 10/20/17
[2017-10-20 12:44] VITALS: BP 117/84
== END 2017-10-20 14:01 | disposition home or self-care (01) | DRG 378 ==
LOC: ER 13:30 → MS 17:03
PROVIDERS: ADMIT Internal Medicine; ATTEND Internal Medicine
DX: F17.210 Nicotine dependence, cigarettes, uncomplicated; D50.9 Iron deficiency anemia, unspecified; K21.9 Gastro-esophageal reflux disease without esophagitis; W19.XXXA Unspecified fall, initial encounter; E87.6 Hypokalemia; Z91.81 History of falling; Z86.718 Personal history of other venous thrombosis and embolism; Y92.009 Unspecified place in unspecified non-institutional (private) residence as the place of occurrence of the external cause; I73.9 Peripheral vascular disease, unspecified; E87.1 Hypo-osmolality and hyponatremia; Z79.01 Long term (current) use of anticoagulants; F10.20 Alcohol dependence, uncomplicated; S70.11XA Contusion of right thigh, initial encounter; K92.2 Gastrointestinal hemorrhage, unspecified
CPT/HCPCS: 36415; 70450; 72170; 80048; 80053; 80307; 80320; 81001; 82150; 82272; 82550; 82553; 83690; 85025; 85610; 85730; 86850; 86900; 93005; 96365; 96366; 99285; G0479; G0481; P9016

== ENCOUNTER 2020-08-08 17:24 | Observation (INO) ==
[2020-08-08] MEDS ORDERED: LORazepam 2 MG/ML DISP.SYRIN IV ONE ×2 (17:51→19:27)
[2020-08-08] MEDS ORDERED: ONDANSETRON HCL/PF 2 MG/ML VIAL IV ONE (17:52)
--- NOTE | 2020-08-08 17:54 | ERNOTE ---
Medical Problem HPI - Narrative Date of Service: 08/08/20 - General Chief Complaint: Nausea/Vomiting Time Seen by Provider: 08/08/20 17:38 Source: patient Exam Limitations: no limitations - Immun/Allergies/Home Medications Immunizations: IMMUNIZATION HX Immunizations Up to Date Yes History of Influenza Vaccine No Hx Pneumococcal Vaccination No Allergies/Adverse Reactions: Allergies No Known Allergies Allergy (Verified 08/08/20 17:36) Home Medications: HOME MEDICATIONS atorvastatin 40 mg tablet 40 mg PO DAILY 01/31/20 [Last Taken Unknown] gabapentin 300 mg capsule 900 mg PO BID cap 01/31/20 [Last Taken Unknown] hydrochlorothiazide 25 mg tablet 25 mg PO DAILY #90 tab 01/31/20 [Last Taken Unknown] omeprazole 40 mg capsule,delayed release 40 mg PO DAILY #90 cap 02/21/20 [Last Taken Unknown] Acetaminophen/Diphenhydramine [Tylenol Pm Ex-Strength Caplet] 1 ea PO QPM PRN 08/08/20 [Last Taken Unknown] - Pain Score Pain Score #1 Pain Score: 8 - History of Present History Narrative: The patient is a 49-year-old male who presents via POV for alcohol intoxication which has been present since yesterday. There are associated symptoms of right upper quadrant abdominal pain, vomiting, shakes. The patient reports generalized abdominal pain, 8/10. There are no alleviating factors. There are aggravating factors of vomiting and activity. Previous treatments have included: None. The past medical history includes: GERD, HLD, alcohol abuse and neuropathy. The social history is positive for alcohol abuse and marijuana use. The patient has had no known ill contacts. Patient states that he was previously sober until August 2019 which he moved to a new house and had some lifestyle changes. Patient states he typically drinks a 1/2 5th of vodka or hard spirits as well as beer. Patient states he drank 1/2-5th vodka last night and smoked marijuana but did not consume beer, early this am began having vomiting and abdominal pain. Patient states he had a large emesis this am and has since had dry heaves and persistent nausea. Review of Systems - Review of Systems Constitutional: Present: chills, diaphoresis, fatigue. Absent: fever EYE: Present: no symptoms reported ENT: Absent: ear pain, nasal drainage, sore throat Respiratory: Present: shortness of breath Cardiology: Absent: chest pain Gastrointestinal/Abdominal: Present: nausea, vomiting, diarrhea, abdominal pain Genitourinary: Present: decreased urinary output. Absent: dysuria Musculoskeletal: Present: no symptoms reported Skin: Present: no symptoms reported. Absent: rash Neurological: Present: dizziness/light-headedness, tremors. Absent: headache, tingling All Other Systems: All systems neg except as marked Medical History (Last Reviewed 08/08/20 @ 18:03 by KORY Contreras) ETOH abuse 01/31/20 drinks 12 pk/wk beer GERD (gastroesophageal reflux disease) Hyperlipidemia Neuropathy Surgical History: Surgical History (Last Reviewed 08/08/20 @ 18:03 by KORY Contreras) History of carpal tunnel surgery Onset Date: ~2014 Lt wrist and Lt elbow Hx of foot surgery Onset Date: ~2009 Lt sole - tumors removed. 2 surgeries Family History: Family History (Last Reviewed 08/08/20 @ 18:03 by KORY Contreras) Mother Asthma Social History: (Last Reviewed 08/08/20 @ 18:03 by KORY Contreras) Social History: Marital status: Single lives independently: Yes Highest level of school completed/degree received: high school graduate Service: Yes branch: [employer] Tobacco: Smoking Status: Never smoker Alcohol: alcohol intake: current Alcohol type: beer alcohol intake frequency: 0-2 drinks per day details: 12 pk/week Substance Use: substance use type: marijuana Dietary Habits: caffeine: Yes Type: coffee Physical Exam - Physical Exam General Appearance: Present: wd/wn, alert, moderate distress Head Exam: Present: normal inspection, no evidence of injury Eye Exam: Normal inspection: bilateral, PERRL: bilateral Neck: Present: normal inspection Respiratory: Present: no respiratory distress, lungs clear, decreased breath sounds Cardiovascular/Chest: Present: no murmur, tachycardia Gastrointestinal/Abdominal: Present: nondistended, soft, tenderness - RUQ, epigastric, abnormal bowel sounds - hyperactive Extremity Exam: Present: extremity edema - 1+ pitting bilateral Neurological Exam: Present: alert, oriented, normal mood/affect, no motor/sensory deficits Skin Exam: Present: normal color, diaphoresis - sweat beads to forehead Progress - Date and Time Seen: Date and Time: 08/08/20 17:40 CIWA: 19. 08/08/20 19:27 Patient feeling better after initial dosing of Ativan and initiation fluids. No further emesis since medication administration. Patient KELLYWA on recheck, 18. Will repeat Ativan administration, fluids continue infusion. HR 103 and BP 158/107. Case was reviewed with and will admit for observation for continued IV hydration and monitoring. - Results and Orders Patient's Lab Results:: I have reviewed the patient's lab results. - Vital Signs Patient's Vital Signs:: I have reviewed the patient's vital signs. Vital Signs: Vital Signs 08/08/20 17:31 Temperature 36.3 C Pulse Rate 114 H Respiratory Rate 24 H Blood Pressure 141/109 H O2 Sat by Pulse Oximetry 93 - EKG EKG #1 EKG: NSR - tachycardia rate 111, nonspecific ST T wave changes EKG read: Reviewed by me EKG Comments: No acute ST elevation, no acute ischemic changes, no ectopy - Progress/Reassessment Chief Complaint: Nausea/Vomiting Progress:: Improved Departure Clinical Impression: Alcohol withdrawal Qualifiers: Complication of substance-induced condition: uncomplicated Qualified Code(s): F10.230 - Alcohol dependence with withdrawal, uncomplicated - Departure Disposition: Short Term Hospital Inpatient Condition: Stable
[2020-08-08] MEDS ORDERED: MULTIVIT INFUSN,ADULT 4,VIT K 10 ML, THIAMINE HCL 100 MG in NORMAL SALINE 1,000 ML IV SCH (18:00)
[2020-08-08 18:07] LABS: Hematocrit 45.6 % (42.0-52.0); Mean Cell Volume 97.4 fl (78-100); Mean Corpuscular Hemoglobin 34.2 pg (27-31); Mean Corpuscular Hgb Conc 35.1 g/dl (32-36); Mean Platelet Volume 9.7 fl (8-11.3); Neutrophil % 90.7 % (42-75.0); Platelet Count 89 K/mm3 (150-450); Red Blood Count 4.68 M/mm3 (4.7-6.0); White Blood Count 7.8 K/mm3 (4.0-10.5)
[2020-08-08 18:24] LABS: ALT 171 U/L (19-67); AST 149 U/L (0-48); Albumin * 5.2 gm/dl (3.4-5.0); Alkaline Phosphatase * 94 U/L (50-170); Amylase * 45 U/L (25-115); Anion Gap 34.6 mmol/L (6.8-13.8); BUN/Creatinine Ratio 11.3 (9.0-21.6); Bilirubin, Total 2.4 mg/dL (0.0-1.1); Blood Urea Nitrogen 18 mg/dL (6-23); Ca. Corrected For Albumin 8.4 mg/dL (8.4-10.2); Calcium * 9.7 mg/dL (7.9-10.9); Carbon Dioxide 13.7 mmol/L (24-32.6); Chloride 88 mmol/L (97-106); Glucose * 139 mg/dL (70-110); Lipase 147 U/L (73-393); Magnesium 1.7 mg/dL (1.2-2.8); Potassium 4.3 mmol/L (3.4-4.6); Sodium 132 mmol/L (132-142); Total Protein 9.7 gm/dL (6.2-8.2)
[2020-08-08 18:36] LABS: Urine Bilirubin 6 mg/dl (NEGATIVE); Urine Blood 250 /ul (NEGATIVE); Urine Ketone Large mg/dL (NEGATIVE); Urine Nitrite Negative (NEGATIVE); Urine Protein >=300 mg/dL (NEGATIVE); Urine Specific Gravity >=1.030 SP.GR. (1.005-1.030); Urine Urobilinogen Normal (NORMAL)
[2020-08-08 18:48] LABS: Cocaine Ur Negative (NEGATIVE); Urine Barbiturate Negative (NEGATIVE); Urine Benzodiazepines Negative (NEGATIVE); Urine Opiates Negative (NEGATIVE); Urine PCP Negative (NEGATIVE)
[2020-08-08 18:50] LABS: Urine THC Positive (NEGATIVE)
[2020-08-08 18:52] LABS: Urine Appearance Clear (CLEAR); Urine Bacteria 3+; Urine Color Yellow; Urine WBC 0-5 /hpf (0-5)
[2020-08-08 18:53] LABS: Urine Hyaline Cast >25 /LPF
[2020-08-08 18:59] LABS: Prothrombin Time (Patient) 10.4 Seconds (9.1-10.7)
[2020-08-08 19:01] LABS: Partial Thrombolplastin Time 24.8 Seconds (24-32)
[2020-08-08] MEDS ORDERED: LORazepam 2 MG/ML DISP.SYRIN IV PRN ×2 (20:46)
[2020-08-08] MEDS ORDERED: ONDANSETRON HCL/PF 2 MG/ML VIAL IV PRN (20:47)
[2020-08-08] MEDS ORDERED: PANTOPRAZOLE SODIUM 40 MG in NORMAL SALINE 100 ML IV ONE (21:14)
[2020-08-08] MEDS ORDERED: hydrALAZINE HCL 20 MG/ML VIAL IV PRN (21:15)
[2020-08-08] MEDS ORDERED: NORMAL SALINE 1,000 ML IV ONE (21:17)
--- NOTE | 2020-08-08 21:19 | HP ---
Chief Complaint - Chief Complaint Date of Service: 08/08/20 Time of Service: 21:19 Chief Complaint: alcohol withdrawal History of Present Illness: 49 yo male with hx of HTN, HLD, GEERD, alcoholism presenting to the hospital today after he developed abdominal pain, nausea and vomiting, "shakiness". Patient is a heavy drinker woke up this morning with the above stated symptoms. He normally drinks anywhere from 1/2 to a full 5th of vodka per day as well as "many beers". He has been doing this for the last year almost. He has not dranking anything today. He came due to feeling "awful". Narendra denies any hallucinations or seizure. He admits to using marijuana. Patieents labs show him to be dehydrated awith mildly elevated liver enzymes but otherwise are unremarkable including normal INR/PT/PTT, wbc. Tox + for marijuana but no alcohol. He has reveived 2 doses of ativan, zofran, and a banana bag (as well as a dose of folic acid) in the ER. When seen he was much more comfortable and mildly nauseated. He denies severe abdominal pain at this time. No blood in his emesis. Admitted for fluids and monitoring of his withdrawal. Medical History (Last Reviewed 08/08/20 @ 18:03 by KORY Contreras) ETOH abuse 01/31/20 drinks 12 pk/wk beer GERD (gastroesophageal reflux disease) Hyperlipidemia Neuropathy Surgical History: Surgical History (Last Reviewed 08/08/20 @ 18:03 by KORY Contreras) History of carpal tunnel surgery Onset Date: ~2014 Lt wrist and Lt elbow Hx of foot surgery Onset Date: ~2009 Lt sole - tumors removed. 2 surgeries Family History: Family History (Last Reviewed 08/08/20 @ 18:03 by KORY Contreras) Mother Asthma Social History: (Last Reviewed 08/08/20 @ 18:03 by KORY Contreras) Social History: Marital status: Single lives independently: Yes Highest level of school completed/degree received: high school graduate Service: Yes branch: [employer] Tobacco: Smoking Status: Never smoker Alcohol: alcohol intake: current Alcohol type: beer alcohol intake frequency: 0-2 drinks per day details: 12 pk/week Substance Use: substance use type: marijuana Dietary Habits: caffeine: Yes Type: coffee Review Of Systems (GEN) - Review of Systems Generalized/Overall Review: Present: Weakness. Absent: Chills, Fever EENTM: Present: No Symptoms Reported Respiratory: Present: No Symptoms Reported Cardiac: Absent: Chest Pain, Edema Abdominal: Present: Nausea, Vomiting, Abdominal Pain. Absent: Hematemesis, Melena, Bright blood from rectum Genitourinary: Present: No Symptoms Reported Musculoskeletal: Present: No Symptoms Reported Neurological: Present: Anxiety, Numbness - his feet, chronic, Tingling - his feet, chronic Skin: Present: No Symptoms Reported Endocrine: Present: No Symptoms Reported Immunizations: IMMUNIZATION HX Immunizations Up to Date Yes History of Influenza Vaccine No Hx Pneumococcal Vaccination No Allergies/Adverse Reactions: Allergies Allergy/AdvReac Type Severity Reaction Status Date / Time No Known Allergies Allergy Verified 08/08/20 17:36 Home Medications: HOME MEDICATIONS atorvastatin 40 mg tablet 40 mg PO DAILY 01/31/20 [Last Taken Unknown] gabapentin 300 mg capsule 900 mg PO BID cap 01/31/20 [Last Taken Unknown] hydrochlorothiazide 25 mg tablet 25 mg PO DAILY #90 tab 01/31/20 [Last Taken Unknown] omeprazole 40 mg capsule,delayed release 40 mg PO DAILY #90 cap 02/21/20 [Last Taken Unknown] Acetaminophen/Diphenhydramine [Tylenol Pm Ex-Strength Caplet] 1 ea PO QPM PRN 08/08/20 [Last Taken Unknown] Exam - Exam Vital Signs: Vital Signs - Last Taken Temp 36.3 C 08/08/20 21:08 Pulse 107 H 08/08/20 21:08 Resp 14 08/08/20 21:08 BP 160/113 H 08/08/20 21:08 Pulse Ox 99 08/08/20 21:08 Constitutional: Present: Alert, Oriented x3, Cooperative, Mild distress, Overweight ENT Exam: Present: hearing grossly normal Eye Exam: bilateral eye: normal inspection, PERRL, EOMI Neck: Present: non-tender, supple Back Exam: Present: no CVA tenderness Respiratory: Present: lungs clear, normal breath sounds Cardiovascular/Chest: Present: no murmur, tachycardia Abdomen: Present: soft, nondistended, tender - epigastic, guarding. Absent: rebound tenderness Extremity: Present: non-tender, other - hand pain Skin Exam: Present: normal color, warm/dry Neurologic: Present: no motor/sensory deficits, alert, oriented x 3 Appearance: Present: appropriate insight, disheveled Eye contact: Present: cooperative, good eye contact, normal speech Thoughts: Present: normal thought pattern, normal mood /affect Diagnostic Studies: Abnormal Lab Results 08/08/20 08/08/20 08/08/20 Range/Units 17:55 17:55 18:20 RBC 4.68 L (4.7-6.0) M/mm3 MCH 34.2 H (27-31) pg Plt Count 89 L (150-450) K/mm3 Immature Gran % (Auto) 0.60 H (0.001-0.429) % Immature Gran # (Auto) 0.05 H (0.000-0.0310) K/mm3 Neutrophils % 90.7 H (42-75.0) % Lymphocytes % 4.6 L (20-51) % Neutrophils # 7.0 H (1.3-6.0) K/mm3 Lymphocytes # 0.36 L (1.5-3.5) k/mm3 Chloride 88 L (97-106) mmol/L Carbon Dioxide 13.7 L (24-32.6) mmol/L Anion Gap 34.6 H (6.8-13.8) mmol/L Creatinine 1.60 H D (0.4-1.4) mg/dL Est GFR (Non-Af Amer) 49 L D (60-130) mL/min Random Glucose 139 H (70-110) mg/dL Total Bilirubin 2.4 H (0.0-1.1) mg/dL AST 149 H (0-48) U/L ALT 171 H (19-67) U/L Total Protein 9.7 H (6.2-8.2) gm/dL Albumin 5.2 H (3.4-5.0) gm/dl Urine Protein >=300 H (NEGATIVE) mg/dL Urine Blood 250 H (NEGATIVE) /ul Urine Bilirubin 6 H (NEGATIVE) mg/dl Urine RBC 5-10 H (0-5) /hpf Urine Bacteria 3+ H (NONE) Hyaline Casts >25 H (NONE) /LPF Urine Marijuana (THC) (NEGATIVE) 08/08/20 Range/Units 18:20 RBC (4.7-6.0) M/mm3 MCH (27-31) pg Plt Count (150-450) K/mm3 Immature Gran % (Auto) (0.001-0.429) % Immature Gran # (Auto) (0.000-0.0310) K/mm3 Neutrophils % (42-75.0) % Lymphocytes % (20-51) % Neutrophils # (1.3-6.0) K/mm3 Lymphocytes # (1.5-3.5) k/mm3 Chloride (97-106) mmol/L Carbon Dioxide (24-32.6) mmol/L Anion Gap (6.8-13.8) mmol/L Creatinine (0.4-1.4) mg/dL Est GFR (Non-Af Amer) (60-130) mL/min Random Glucose (70-110) mg/dL Total Bilirubin (0.0-1.1) mg/dL AST (0-48) U/L ALT (19-67) U/L Total Protein (6.2-8.2) gm/dL Albumin (3.4-5.0) gm/dl Urine Protein (NEGATIVE) mg/dL Urine Blood (NEGATIVE) /ul Urine Bilirubin (NEGATIVE) mg/dl Urine RBC (0-5) /hpf Urine Bacteria (NONE) Hyaline Casts (NONE) /LPF Urine Marijuana (THC) Positive H (NEGATIVE) Laboratory Results WBC 7.8 K/mm3 (4.0-10.5) 08/08/20 17:55 RBC 4.68 M/mm3 (4.7-6.0) L 08/08/20 17:55 Hgb 16.0 gm/dL (13.5-18.0) 08/08/20 17:55 Hct 45.6 % (42.0-52.0) 08/08/20 17:55 MCV 97.4 fl (78-100) 08/08/20 17:55 MCH 34.2 pg (27-31) H 08/08/20 17:55 MCHC 35.1 g/dl (32-36) 08/08/20 17:55 RDW 13.0 % (11.5-14.0) 08/08/20 17:55 Plt Count 89 K/mm3 (150-450) L 08/08/20 17:55 MPV 9.7 fl (8-11.3) 08/08/20 17:55 Immature Gran % (Auto) 0.60 % (0.001-0.429) H 08/08/20 17:55 Immature Gran # (Auto) 0.05 K/mm3 (0.000-0.0310) H 08/08/20 17:55 Neutrophils % 90.7 % (42-75.0) H 08/08/20 17:55 Lymphocytes % 4.6 % (20-51) L 08/08/20 17:55 Monocytes % 4.0 % (0.0-9) 08/08/20 17:55 Eosinophils % 0.0 % (0.0-3.0) 08/08/20 17:55 Basophils % 0.1 % (0.0-1.0) 08/08/20 17:55 Nucleated RBC % 0.0 k/mm3 (0-1) 08/08/20 17:55 Neutrophils # 7.0 K/mm3 (1.3-6.0) H 08/08/20 17:55 Lymphocytes # 0.36 k/mm3 (1.5-3.5) L 08/08/20 17:55 Monocytes # 0.3 k/mm3 (0.0-1.0) 08/08/20 17:55 Eosinophils # 0.0 k/mm3 (0.0-0.7) 08/08/20 17:55 Absolute Basophils 0.0 k/mm3 (0.0-0.1) 08/08/20 17:55 PT 10.4 Seconds (9.1-10.7) 08/08/20 17:55 INR (Anticoag Therapy) 1.00 INR (0.92-1.08) 08/08/20 17:55 PTT ([place]) 24.8 Seconds (24-32) 08/08/20 17:55 Sodium 132 mmol/L (132-142) 08/08/20 17:55 Plasma Sodium 133 mmol/L (130-142) 08/08/20 17:55 Potassium 4.3 mmol/L (3.4-4.6) 08/08/20 17:55 Chloride 88 mmol/L (97-106) L 08/08/20 17:55 Carbon Dioxide 13.7 mmol/L (24-32.6) L 08/08/20 17:55 Anion Gap 34.6 mmol/L (6.8-13.8) H 08/08/20 17:55 BUN 18 mg/dL (6-23) D 08/08/20 17:55 Creatinine 1.60 mg/dL (0.4-1.4) H D 08/08/20 17:55 Est GFR (Non-Af Amer) 49 mL/min (60-130) L D 08/08/20 17:55 BUN/Creatinine Ratio 11.3 (9.0-21.6) 08/08/20 17:55 Random Glucose 139 mg/dL (70-110) H 08/08/20 17:55 Calcium 9.7 mg/dL (7.9-10.9) 08/08/20 17:55 Calcium Adj for Albumin 8.4 mg/dL (8.4-10.2) 08/08/20 17:55 Phosphorus 4.2 mg/dL (2.2-4.2) 08/08/20 17:55 Magnesium 1.7 mg/dL (1.2-2.8) 08/08/20 17:55 Total Bilirubin 2.4 mg/dL (0.0-1.1) H 08/08/20 17:55 AST 149 U/L (0-48) H 08/08/20 17:55 ALT 171 U/L (19-67) H 08/08/20 17:55 Alkaline Phosphatase 94 U/L (50-170) 08/08/20 17:55 Ammonia 30.0 mcmol/L (11-35) 08/08/20 19:00 Total Protein 9.7 gm/dL (6.2-8.2) H 08/08/20 17:55 Albumin 5.2 gm/dl (3.4-5.0) H 08/08/20 17:55 Amylase 45 U/L (25-115) 08/08/20 17:55 Lipase 147 U/L (73-393) 08/08/20 17:55 Urine Color Yellow 08/08/20 18:20 Urine Appearance Clear (CLEAR) 08/08/20 18:20 Urine pH 6.0 pH (5.0-7.0) 08/08/20 18:20 Ur Specific [place] >=1.030 SP.GR. (1.005-1.030) 08/08/20 18:20 Urine Protein >=300 mg/dL (NEGATIVE) H 08/08/20 18:20 Urine Glucose (UA) Negative mg/dL (NEGATIVE) 08/08/20 18:20 Urine Ketones Large mg/dL (NEGATIVE) 08/08/20 18:20 Urine Blood 250 /ul (NEGATIVE) H 08/08/20 18:20 Urine Nitrate Negative (NEGATIVE) 08/08/20 18:20 Urine Bilirubin 6 mg/dl (NEGATIVE) H 08/08/20 18:20 Urine Urobilinogen Normal EU/dl (NORMAL) 08/08/20 18:20 Ur Leukocyte Esterase Negative /ul (NEGATIVE) 08/08/20 18:20 Urine RBC 5-10 /hpf (0-5) H 08/08/20 18:20 Urine WBC 0-5 /hpf (0-5) 08/08/20 18:20 Ur Epithelial Cells Trace /hpf (0-5) 08/08/20 18:20 Urine Bacteria 3+ (NONE) H 08/08/20 18:20 Hyaline Casts >25 /LPF (NONE) H 08/08/20 18:20 Urine Culture Comments No culture indicated 08/08/20 18:20 Urine Opiates Screen Negative (NEGATIVE) 08/08/20 18:20 Barbiturate Screen Negative (NEGATIVE) 08/08/20 18:20 Ur Phencyclidine Scrn Negative (NEGATIVE) 08/08/20 18:20 Urine Amphetamine Negative (NEGATIVE) 08/08/20 18:20 U Benzodiazepines Scrn Negative (NEGATIVE) 08/08/20 18:20 Urine Cocaine Screen Negative (NEGATIVE) 08/08/20 18:20 Urine Marijuana (THC) Positive (NEGATIVE) H 08/08/20 18:20 Ethyl Alcohol Less than 3.0 mg/dL (0.0-10.0) 08/08/20 17:55 SARS-CoV-2 (PCR) Not detected (NotDetected) 08/08/20 19:13 Assessment/Plan - Narrative Narrative: Patient placed under observation, likely home tomorrow. SCD for DVT ppx. Clear liquids ordered. CIWA scores to be monitored, ativan as directed per protocol. Protonix to be given this evening. Zofran ordered for nausea. Repeat labs in the am. Hydralazine with parameters ordered for elevated BPs. Home meds restarted for the am. Likely discharged home tomorrow. - Assessment/Plan (1) Alcohol withdrawal Assessment: CIWA ordered, valium as per protocol. Nurse to monitor hourly. Will notify me of worsening agitation or withdrawal Problem: Acute Qualifiers: Complication of substance-induced condition: uncomplicated Qualified Code(s): F10.230 - Alcohol dependence with withdrawal, uncomplicated (2) Hypokalemia Assessment: mild, repeat BMP in the am Problem: Acute (3) Dehydration, moderate Assessment: Patient received 1 L of vitamin bag as well as will be started on 1 L NS following the completion of the banana bag. Repeat BMP in AM Problem: Acute (4) Alcohol dependence Problem: Chronic Qualifiers: Substance use status: other alcohol-induced disorder Qualified Code(s): F10.288 - Alcohol dependence with other alcohol-induced disorder
[2020-08-08] MEDS: FOLIC ACID 1 MG TABLET PO SCH (21:48)
[2020-08-08] MEDS: LORazepam 2 MG/ML DISP.SYRIN IV PRN (21:49)
[2020-08-09] MEDS: LORazepam 2 MG/ML DISP.SYRIN IV PRN (01:51)
[2020-08-09] MEDS ORDERED: ONDANSETRON HCL/PF 2 MG/ML VIAL IV PRN (06:21)
[2020-08-09 07:38] LABS: Anion Gap 21.5 mmol/L (6.8-13.8); Calcium * 9.1 mg/dL (7.9-10.9); Carbon Dioxide 18.3 mmol/L (24-32.6); Estimated Creat Clear 73.4; Potassium 3.8 mmol/L (3.4-4.6)
[2020-08-09] MEDS ORDERED: GABAPENTIN 300 MG CAPSULE PO SCH (09:00)
[2020-08-09] MEDS ORDERED: ROSUVASTATIN CALCIUM 20 MG TABLET PO SCH ×2 (09:00→21:00)
[2020-08-09] MEDS ORDERED: HYDROCHLOROTHIAZIDE 25 MG TABLET PO SCH (09:00)
[2020-08-09] MEDS: FOLIC ACID 1 MG TABLET PO SCH (09:05)
--- NOTE | 2020-08-09 09:16 | DS ---
(1) Alcohol withdrawal Problem: Acute Qualifiers: Complication of substance-induced condition: uncomplicated Qualified Code(s): F10.230 - Alcohol dependence with withdrawal, uncomplicated (2) Alcoholism /alcohol abuse Problem: Chronic (3) Dehydration, moderate Problem: Resolved (4) Hypokalemia Problem: Resolved Date of Discharge:: 08/09/20 Hospital Course: 49-year-old male admitted for alcohol withdrawal, nausea and vomiting, dehydration, and hypokalemia was evaluated at bedside this morning was found to be afebrile and in no acute distress. Patient reports feeling better and denies any nausea vomiting or abdominal pain. He has not had any seizures or other signs or symptoms of alcohol withdrawal and says he would like to go home. We are in agreement to discharge patient however he was counseled on the importance of refraining from alcohol consumption and to avoid relapsing. The patient successfully stop drinking for over 2 years but after finding a new place to live he was in a celebratory mood and started drinking. He was told to find other ways to celebrate. We will discharge him home with instructions to follow-up with myself his PCP in the internal medicine clinic in 1 week and to make an appointment with AA and add for assistance including alcohol. Procedures Performed: none Results and Findings: Lab Pending Results 08/08/20 17:55: WBC 7.8, RBC 4.68 L, Hgb 16.0, Hct 45.6, MCV 97.4, MCH 34.2 H, MCHC 35.1, RDW 13.0, Plt Count 89 L, MPV 9.7, Immature Gran % (Auto) 0.60 H, Immature Gran # (Auto) 0.05 H, Neutrophils % 90.7 H, Lymphocytes % 4.6 L, Monocytes % 4.0, Eosinophils % 0.0, Basophils % 0.1, Nucleated RBC % 0.0, Neutrophils # 7.0 H, Lymphocytes # 0.36 L, Monocytes # 0.3, Eosinophils # 0.0, Absolute Basophils 0.0 08/08/20 17:55: Sodium 132, Plasma Sodium 133, Potassium 4.3, Chloride 88 L, Carbon Dioxide 13.7 L, Anion Gap 34.6 H, BUN 18 D, Creatinine 1.60 H D, Est GFR (Non-Af Amer) 49 L D, BUN/Creatinine Ratio 11.3, Random Glucose 139 H, Calcium 9.7, Calcium Adj for Albumin 8.4, Magnesium 1.7, Total Bilirubin 2.4 H, AST 149 H, ALT 171 H, Alkaline Phosphatase 94, Total Protein 9.7 H, Albumin 5.2 H, Amylase 45, Lipase 147, Ethyl Alcohol Less than 3.0 08/08/20 17:55: PT 10.4, INR (Anticoag Therapy) 1.00, PTT ([place]) 24.8 08/08/20 17:55: Phosphorus 4.2 08/08/20 18:20: Urine Color Yellow, Urine Appearance Clear, Urine pH 6.0, Ur Specific [place] >=1.030, Urine Protein >=300 H, Urine Glucose (UA) Negative, Urine Ketones Large, Urine Blood 250 H, Urine Nitrate Negative, Urine Bilirubin 6 H, Urine Urobilinogen Normal, Ur Leukocyte Esterase Negative, Urine RBC 5-10 H, Urine WBC 0-5, Ur Epithelial Cells Trace, Urine Bacteria 3+ H, Hyaline Casts >25 H, Urine Culture Comments No culture indicated 08/08/20 18:20: Urine Opiates Screen Negative, Barbiturate Screen Negative, Ur Phencyclidine Scrn Negative, Urine Amphetamine Negative, U Benzodiazepines Scrn Negative, Urine Cocaine Screen Negative, Urine Marijuana (THC) Positive H 08/08/20 19:00: Ammonia 30.0 08/08/20 19:13: SARS-CoV-2 (PCR) Not detected 08/09/20 07:00: Sodium 134, Plasma Sodium 134, Potassium 3.8, Chloride 98, Carbon Dioxide 18.3 L, Anion Gap 21.5 H, BUN 19, Creatinine 1.19, Est GFR (Non- Af Amer) 69 D, BUN/Creatinine Ratio 16.0, Random Glucose 91 D, Calcium 9.1 Discharge Location: Home Disposition: Home self-care Condition: Stable Face to Face Encounter completed per CMS Guidelines: No Discharge Activity: Activity as tolerated Discharge Diet: Low fat/chol Referrals: Mahsa Gomez MD [Primary Care Provider] - Additional Patient Instructions (free text): [facility] is Phone number [phone] AA meetings in [place] is on Thursday 7:00-8:00pm at [address] Prescriptions (Any new or edited meds): Ondansetron HCl [Zofran] 4 mg PO Q4H PRN #10 tab PRN Reason: Nausea And Vomiting Transmission Status: Pending to [facility], [place], [place] Complete Home Medications List: Complete Home Medication List: atorvastatin 40 mg tablet 40 mg PO DAILY 01/31/20 gabapentin 300 mg capsule 900 mg PO BID cap 01/31/20 hydrochlorothiazide 25 mg tablet 25 mg PO DAILY #90 tab 01/31/20 omeprazole 40 mg capsule,delayed release 40 mg PO DAILY #90 cap 02/21/20 Acetaminophen/Diphenhydramine [Tylenol Pm Ex-Strength Caplet] 1 ea PO QPM PRN 08/08/20 Ondansetron HCl [Zofran] 4 mg PO Q4H PRN #10 tab 08/09/20
[2020-08-09 10:37] VITALS: BP 127/80
== END 2020-08-09 10:32 | disposition home or self-care (01) ==
LOC: ER 17:24 → MS 17:24
PROVIDERS: ADMIT Family Medicine; ATTEND Family Medicine

== ENCOUNTER 2020-10-12 12:43 | Observation (INO) ==
[2020-10-12] MEDS ORDERED: NORMAL SALINE 1,000 ML IV ONE ×2 (13:00→14:08)
[2020-10-12] MEDS ORDERED: ONDANSETRON HCL/PF 2 MG/ML VIAL IV ONE ×2 (13:00→16:00)
--- NOTE | 2020-10-12 13:16 | ERNOTE ---
Abdominal HPI - Narrative Date of Service: 10/12/20 - General Chief Complaint: Abdominal Pain Time Seen by Provider: 10/12/20 12:52 Source: patient, EMS Exam Limitations: no limitations - Immun/Allergies/Home Medications Immunizatons: IMMUNIZATION HX Immunizations Up to Date Yes History of Influenza Vaccine No Hx Pneumococcal Vaccination No Allergies/Adverse Reactions: Allergies No Known Allergies Allergy (Verified 10/12/20 12:47) Home Medications: HOME MEDICATIONS atorvastatin 40 mg tablet 40 mg PO DAILY 01/31/20 [Last Taken Unknown] hydrochlorothiazide 25 mg tablet 25 mg PO DAILY #90 tab 01/31/20 [Last Taken Unknown] omeprazole 40 mg capsule,delayed release 40 mg PO DAILY #90 cap 02/21/20 [Last Taken 10/11/20 10:00] gabapentin 300 mg capsule 900 mg PO BID #180 cap 09/03/20 [Last Taken 10/11/20 21:00] Acetaminophen/Diphenhydramine [Tylenol Pm Ex-Strength Caplet] 2 ea PO HS 10/12/20 [Last Taken Unknown] Acetaminophen [Tylenol] 1,000 mg PO HS PRN tab 10/13/20 [Last Taken Unknown] Folic Acid 1 mg PO DAILY tab 10/13/20 [Last Taken Unknown] LORazepam [Ativan] 1 mg PO Q6H #90 tab 10/13/20 [Last Taken Unknown] Ondansetron HCl [Zofran] 4 mg PO Q4H PRN #30 tab 10/13/20 [Last Taken Unknown] diphenhydrAMINE HCL [Benadryl] 50 mg PO HS PRN cap 10/13/20 [Last Taken Unknown] - History of Present Illness Narrative: This patient is a 48-year-old male who arrived by ambulance with vomiting. The patient said that he started vomiting last night or this morning. He estimates she is thrown up about 10 times. He said that his stomach is little sore and attributes it to vomiting. He points to the right upper abdomen as the area of discomfort. He has a history of alcohol abuse. He drinks a sixpack per night. He said that his birthday was 2 days ago and he had a 12 pack. He denies other drug use. He has no diarrhea. He has felt dizzy and lightheaded today. He has not taken or done anything for the nausea and vomiting. He indicates that he was admitted for similar symptoms recently and feels that he might need to stay in the hospital this time. It looks like he had some renal insufficiency that resolved at his last admission. He later stated that he has been drinking a liter bottle of vodka daily for the past year. He says that he does not really drink beer. Review of Systems - Review of Systems Constitutional: Absent: fever ENT: Absent: ear pain, nose congestion, nasal drainage, sore throat Respiratory: Absent: shortness of breath, cough Cardiology: Absent: chest pain, palpitations, syncope Gastrointestinal/Abdominal: Present: See HPI Genitourinary: Absent: frequency, pain, dysuria, hematuria Musculoskeletal: Present: back pain. Absent: neck pain Skin: Absent: rash Neurological: Present: dizziness/light-headedness Endocrine: Present: no symptoms reported Hematologic/Lymphatic: Present: no symptoms reported Psych: Present: no symptoms reported Medical History (Last Reviewed 10/12/20 @ 13:15 by Amaury Christine MD) ETOH abuse 01/31/20 drinks 12 pk/wk beer GERD (gastroesophageal reflux disease) Hyperlipidemia Neuropathy Surgical History: Surgical History (Last Reviewed 10/12/20 @ 13:15 by Amaury Christine MD) History of carpal tunnel surgery Onset Date: ~2014 Lt wrist and Lt elbow Hx of foot surgery Onset Date: ~2009 Lt sole - tumors removed. 2 surgeries Family History: Family History (Last Reviewed 10/12/20 @ 13:15 by Amaury Christine MD) Mother Asthma Social History: (Last Reviewed 10/12/20 @ 13:15 by Amaury Christine MD) Social History: Marital status: Single lives independently: Yes Highest level of school completed/degree received: high school graduate Service: Yes branch: [employer] Tobacco: Smoking Status: Never smoker Alcohol: alcohol intake: current Alcohol type: beer alcohol intake frequency: 3 or more drinks per day details: 12 pk/week Substance Use: substance use type: marijuana Dietary Habits: caffeine: Yes Type: coffee Physical Exam - Physical Exam General Appearance: Present: wd/wn, alert, no apparent distress Head Exam: Present: normal inspection, no evidence of injury Eye Exam: Normal inspection: bilateral Ears, Nose, Throat: Present: normal ENT inspection Neck: Present: normal inspection, supple Respiratory: Present: no respiratory distress, normal breath sounds, no accessory muscle use, lungs clear Cardiovascular/Chest: Present: no murmur, tachycardia Gastrointestinal/Abdominal: Present: normal bowel sounds, nontender, nondistended, soft, no organomegaly Back Exam: Present: normal inspection Extremity Exam: Present: normal inspection Neurological Exam: Present: alert, oriented, normal mood/affect, no motor/sensory deficits Skin Exam: Present: normal color, warm/dry Progress - Results and Orders Patient's Lab Results:: I have reviewed the patient's lab results. Results and Orders: Laboratory Tests 10/12/20 10/12/20 10/12/20 12:58 12:58 13:20 WBC 4.9 RBC 4.25 L Hgb 14.6 Hct 41.9 L MCV 98.6 MCH 34.4 H MCHC 34.8 RDW 12.8 Plt Count 68 L MPV 10.4 Immature Gran % (Auto) 0.40 Immature Gran # (Auto) 0.02 Neutrophils % 68.6 Lymphocytes % 18.5 L Monocytes % 12.1 H Eosinophils % 0.0 Basophils % 0.4 Nucleated RBC % 0.0 Neutrophils # 3.3 Lymphocytes # 0.90 L Monocytes # 0.6 Eosinophils # 0.0 Absolute Basophils 0.0 PT INR (Anticoag Therapy) PTT (Eva) Sodium Plasma Sodium Potassium Chloride Carbon Dioxide Anion Gap BUN Creatinine Est GFR (Non-Af Amer) BUN/Creatinine Ratio Random Glucose Calcium Calcium Adj for Albumin Total Bilirubin AST ALT Alkaline Phosphatase Total Protein Albumin Lipase Urine Color Dark yellow Urine Appearance Slightly cloudy Urine pH 6.0 Ur Specific [place] >=1.030 Urine Protein 100 H Urine Glucose (UA) Negative Urine Ketones Large Urine Blood 25 H Urine Nitrate Negative Urine Bilirubin 3 H Urine Urobilinogen Normal Ur Leukocyte Esterase Negative Urine RBC None seen Urine WBC 0-5 Ur Epithelial Cells 0-5 Urine Bacteria None seen Fine Granular Casts Trace Urine Culture Comments No culture indicated Urine Opiates Screen Negative Barbiturate Screen Negative Ur Phencyclidine Scrn Negative Urine Amphetamine Negative U Benzodiazepines Scrn Negative Urine Cocaine Screen Negative Urine Marijuana (THC) Positive H Ethyl Alcohol 10/12/20 10/12/20 13:20 13:20 WBC RBC Hgb Hct MCV MCH MCHC RDW Plt Count MPV Immature Gran % (Auto) Immature Gran # (Auto) Neutrophils % Lymphocytes % Monocytes % Eosinophils % Basophils % Nucleated RBC % Neutrophils # Lymphocytes # Monocytes # Eosinophils # Absolute Basophils PT 10.3 INR (Anticoag Therapy) 0.99 PTT (Eva) 26.1 Sodium 131 L Plasma Sodium 132 Potassium 2.9 L D Chloride 88 L Carbon Dioxide 10.1 L Anion Gap 35.8 H BUN 10 Creatinine 1.32 Est GFR (Non-Af Amer) 61 BUN/Creatinine Ratio 7.6 L Random Glucose 134 H Calcium 9.7 Calcium Adj for Albumin 8.5 Total Bilirubin 2.7 H AST 163 H ALT 74 H Alkaline Phosphatase 95 Total Protein 9.1 H Albumin 5.1 H Lipase 499 H Urine Color Urine Appearance Urine pH Ur Specific [place] Urine Protein Urine Glucose (UA) Urine Ketones Urine Blood Urine Nitrate Urine Bilirubin Urine Urobilinogen Ur Leukocyte Esterase Urine RBC Urine WBC Ur Epithelial Cells Urine Bacteria Fine Granular Casts Urine Culture Comments Urine Opiates Screen Barbiturate Screen Ur Phencyclidine Scrn Urine Amphetamine U Benzodiazepines Scrn Urine Cocaine Screen Urine Marijuana (THC) Ethyl Alcohol Less than 3.0 - Vital Signs Patient's Vital Signs:: I have reviewed the patient's vital signs. Vital Signs: Vital Signs 10/12/20 12:43 Temperature 36.6 C Pulse Rate 113 H Respiratory Rate 20 Blood Pressure 178/118 H O2 Sat by Pulse Oximetry 100 - EKG EKG #1 EKG read: Interp. by me EKG Comments: Sinus tachycardia Rate [address]-T wave abnormalities No significant change from a an EKG dated 08/08/2020 - Progress/Reassessment Chief Complaint: Abdominal Pain Plan - Plan Plan: The patient is interested in staying in the hospital. He feels that he is too shaky to go home and that he might fall. He was assisted to the bathroom here and did well. He also says that he still nauseated and vomiting. He has not vomited while he is here. He has taken potassium and the CT scan prep. I spoke with Dr. Araujo. He will keep the patient for observation tonight. Departure Clinical Impression: Alcoholism /alcohol abuse, Liver failure, Hypokalemia due to excessive gastrointestinal loss of potassium, Thrombocytopenia concurrent with and due to alcoholism, Elevated lipase - Departure Disposition: Still a patient Condition: Fair
[2020-10-12 13:28] LABS: Hematocrit 41.9 % (42.0-52.0); Hemoglobin 14.6 gm/dL (13.5-18.0); Mean Cell Volume 98.6 fl (78-100); Mean Corpuscular Hemoglobin 34.4 pg (27-31); Mean Corpuscular Hgb Conc 34.8 g/dl (32-36); Mean Platelet Volume 10.4 fl (8-11.3); Neutrophil # 3.3 K/mm3 (1.3-6.0); Neutrophil % 68.6 % (42-75.0); Platelet Count 68 K/mm3 (150-450); Red Blood Count 4.25 M/mm3 (4.7-6.0); Red Cell Distribution Width 12.8 % (11.5-14.0); White Blood Count 4.9 K/mm3 (4.0-10.5)
[2020-10-12 13:31] LABS: Urine Bilirubin 3 mg/dl (NEGATIVE); Urine Blood 25 /ul (NEGATIVE); Urine Ketone Large mg/dL (NEGATIVE); Urine Nitrite Negative (NEGATIVE); Urine Protein 100 mg/dL (NEGATIVE); Urine Specific Gravity >=1.030 SP.GR. (1.005-1.030); Urine Urobilinogen Normal (NORMAL)
[2020-10-12 13:35] LABS: Urine Appearance Slightly Cloudy (CLEAR); Urine Color Dark Yellow
[2020-10-12 13:36] LABS: Prothrombin Time (Patient) 10.3 Seconds (9.1-10.7)
[2020-10-12 13:37] LABS: INR 0.99 INR (0.92-1.08); Partial Thrombolplastin Time 26.1 Seconds (24-32)
[2020-10-12 13:41] LABS: Urine Bacteria None Seen; Urine RBC None Seen /hpf (0-5); Urine WBC 0-5 /hpf (0-5)
[2020-10-12 13:42] LABS: Urine Fine Granular Cast TRACE /LPF
[2020-10-12 13:45] LABS: ALT 74 U/L (19-67); AST 163 U/L (0-48); Albumin * 5.1 gm/dl (3.4-5.0); Alkaline Phosphatase * 95 U/L (50-170); Anion Gap 35.8 mmol/L (6.8-13.8); BUN/Creatinine Ratio 7.6 (9.0-21.6); Bilirubin, Total 2.7 mg/dL (0.0-1.1); Blood Urea Nitrogen 10 mg/dL (6-23); Ca. Corrected For Albumin 8.5 mg/dL (8.4-10.2); Calcium * 9.7 mg/dL (7.9-10.9); Carbon Dioxide 10.1 mmol/L (24-32.6); Chloride 88 mmol/L (97-106); Glucose * 134 mg/dL (70-110); Lipase 499 U/L (73-393); Potassium 2.9 mmol/L (3.4-4.6); Sodium 131 mmol/L (132-142); Total Protein 9.1 gm/dL (6.2-8.2)
[2020-10-12 14:06] LABS: Cocaine Ur Negative (NEGATIVE); Urine Barbiturate Negative (NEGATIVE); Urine Benzodiazepines Negative (NEGATIVE); Urine Opiates Negative (NEGATIVE); Urine PCP Negative (NEGATIVE)
[2020-10-12] MEDS ORDERED: POTASSIUM CHLORIDE 20 MEQ TABLET.SA PO ONE ×2 (14:08→22:55)
[2020-10-12 14:10] LABS: Urine THC Positive (NEGATIVE)
[2020-10-12] MEDS ORDERED: GABAPENTIN 100 MG CAPSULE PO ONE (14:16)
[2020-10-12] MEDS ORDERED: DIATRIZOATE MEGLUMINE, SODIUM 30 ML BTL ONE (14:17)
[2020-10-12] MEDS ORDERED: ONDANSETRON HCL/PF 2 MG/ML VIAL ONE (15:45)
[2020-10-12] MEDS ORDERED: LORazepam 2 MG/ML DISP.SYRIN IV PRN ×3 (22:55)
[2020-10-12] MEDS ORDERED: [UNRECOGNIZED DRUG - OTHER] PO PRN (23:05)
[2020-10-12] MEDS ORDERED: ACETAMINOPHEN PO PRN (23:05)
[2020-10-12] MEDS ORDERED: DIPHENHYDRAMINE PO PRN (23:05)
[2020-10-12] MEDS ORDERED: diphenhydrAMINE HCL 25 MG CAPSULE PO PRN (23:28)
[2020-10-12] MEDS ORDERED: ACETAMINOPHEN 500 MG TABLET PO PRN (23:28)
[2020-10-12] MEDS: LORazepam 1 MG TABLET PO SCH (23:36)
[2020-10-12] MEDS: GABAPENTIN 300 MG CAPSULE PO SCH (23:36)
[2020-10-13] MEDS: LORazepam 1 MG TABLET PO SCH ×2 (05:12→11:47)
[2020-10-13] MEDS ORDERED: OMEPRAZOLE 20 MG CAPSULE.SA PO SCH (06:00)
[2020-10-13] MEDS ORDERED: PANTOPRAZOLE SODIUM 40 MG TABLET.EC PO SCH (07:30)
[2020-10-13] MEDS: GABAPENTIN 300 MG CAPSULE PO SCH (08:04)
[2020-10-13] MEDS ORDERED: THIAMINE HCL 100 MG TABLET PO SCH (09:00)
[2020-10-13] MEDS ORDERED: FOLIC ACID 1 MG TABLET PO SCH (09:00)
[2020-10-13] MEDS ORDERED: ROSUVASTATIN CALCIUM 20 MG TABLET PO SCH (09:00)
[2020-10-13] MEDS ORDERED: HYDROCHLOROTHIAZIDE 25 MG TABLET PO SCH (09:00)
[2020-10-13 09:29] LABS: Albumin * 4.2 gm/dl (3.4-5.0); BUN/Creatinine Ratio 5.1 (9.0-21.6); Bilirubin, Total 1.5 mg/dL (0.0-1.1); Ca. Corrected For Albumin 9.3 mg/dL (8.4-10.2); Calcium * 9.8 mg/dL (7.9-10.9); Carbon Dioxide 21.4 mmol/L (24-32.6); Potassium 3.4 mmol/L (3.4-4.6); Total Protein 7.3 gm/dL (6.2-8.2)
[2020-10-13] MEDS ORDERED: ONDANSETRON HCL 4 MG TABLET PO PRN (09:32)
--- NOTE | 2020-10-13 10:38 | HP ---
Chief Complaint - Chief Complaint Date of Service: 10/12/20 Time of Service: 22:00 Chief Complaint: Nausea, vomiting History of Present Illness: Olu is a 48 yo male presenting to [facility] ER by ambulance for vomiting. This patient is a 48-year-old male who arrived by ambulance with vomiting. He reported vomiting 10 times. He reports drinking 6 to 12 drinks daily and sometimes a liter of vodka daily. He reports no history of seizure. He would like to stop drinking alcohol. Evaluation in the ER showed potassium of 2.9. Medical History (Last Reviewed 10/12/20 @ 21:25 by Azra Morrison RN) ETOH abuse 01/31/20 drinks 12 pk/wk beer GERD (gastroesophageal reflux disease) Hyperlipidemia Neuropathy Surgical History: Surgical History (Last Reviewed 10/12/20 @ 21:25 by Azra Morrison RN) History of carpal tunnel surgery Onset Date: ~2014 Lt wrist and Lt elbow Hx of foot surgery Onset Date: ~2009 Lt sole - tumors removed. 2 surgeries Family History: Family History (Last Reviewed 10/12/20 @ 21:25 by Azra Morrison RN) Mother Asthma Social History: (Last Updated 10/12/20 @ 21:26 by Arza Morrison RN) Social History: Marital status: Single lives independently: Yes Highest level of school completed/degree received: high school graduate Service: Yes branch: [employer] Tobacco: Smoking Status: Never smoker Alcohol: alcohol intake: current Alcohol type: hard liquor alcohol intake frequency: 3 or more drinks per day details: 12 pk/week Substance Use: substance use type: marijuana Dietary Habits: caffeine: Yes Type: coffee Review Of Systems (GEN) - Review of Systems Generalized/Overall Review: Present: Weakness, Fatigue. Absent: Chills, Fever EENTM: Present: No Symptoms Reported Respiratory: Absent: Cough, Shortness of Breath Cardiac: Absent: Chest Pain, Edema, Palpitations, Syncope Abdominal: Present: Nausea, Vomiting, Abdominal Pain Genitourinary: Present: No Symptoms Reported Musculoskeletal: Present: No Symptoms Reported Neurological: Present: Headache, Weakness Skin: Present: No Symptoms Reported Endocrine: Present: No Symptoms Reported Immunizations: IMMUNIZATION HX Immunizations Up to Date Yes History of Influenza Vaccine No Hx Pneumococcal Vaccination No Allergies/Adverse Reactions: Allergies Allergy/AdvReac Type Severity Reaction Status Date / Time No Known Allergies Allergy Verified 10/12/20 12:47 Home Medications: HOME MEDICATIONS atorvastatin 40 mg tablet 40 mg PO DAILY 01/31/20 [Last Taken Unknown] hydrochlorothiazide 25 mg tablet 25 mg PO DAILY #90 tab 01/31/20 [Last Taken Unknown] omeprazole 40 mg capsule,delayed release 40 mg PO DAILY #90 cap 02/21/20 [Last Taken 10/11/20 10:00] gabapentin 300 mg capsule 900 mg PO BID #180 cap 09/03/20 [Last Taken 10/11/20 21:00] Acetaminophen/Diphenhydramine [Tylenol Pm Ex-Strength Caplet] 2 ea PO HS 10/12/20 [Last Taken Unknown] Exam - Exam Vital Signs: Vital Signs - Last Taken Temp 37.1 C 10/13/20 10:22 Pulse 103 H 10/13/20 10:22 Resp 16 10/13/20 10:22 BP 123/83 10/13/20 10:22 Pulse Ox 100 10/13/20 10:22 Constitutional: Present: Alert, Oriented x3, Cooperative, No distress ENT Exam: Present: hearing grossly normal Eye Exam: bilateral eye: normal inspection Respiratory: Present: lungs clear, normal breath sounds Cardiovascular/Chest: Present: regular rate, rhythm, no murmur Peripheral Pulses: radial (R): 2+, radial (L): 2+ Abdomen: Present: Normal bowel sounds, soft, nontender, nondistended Skin Exam: Present: normal color, warm/dry, no cyanosis. Absent: jaundice Lymphatic: Present: no adenopathy Neurologic: Present: no motor/sensory deficits, alert, normal mood/affect, oriented x 3 Appearance: Present: appropriate appearance, appropriate insight Eye contact: Present: cooperative, good eye contact, normal speech Diagnostic Studies: Abnormal Lab Results 10/12/20 10/12/20 10/12/20 Range/Units 12:58 12:58 13:20 RBC 4.25 L (4.7-6.0) M/mm3 Hct 41.9 L (42.0-52.0) % MCH 34.4 H (27-31) pg Plt Count 68 L (150-450) K/mm3 Lymphocytes % 18.5 L (20-51) % Monocytes % 12.1 H (0.0-9) % Lymphocytes # 0.90 L (1.5-3.5) k/mm3 Sodium (132-142) mmol/L Potassium (3.4-4.6) mmol/L Chloride (97-106) mmol/L Carbon Dioxide (24-32.6) mmol/L Anion Gap (6.8-13.8) mmol/L BUN/Creatinine Ratio (9.0-21.6) Random Glucose (70-110) mg/dL Total Bilirubin (0.0-1.1) mg/dL AST (0-48) U/L ALT (19-67) U/L Total Protein (6.2-8.2) gm/dL Albumin (3.4-5.0) gm/dl Lipase (73-393) U/L Urine Protein 100 H (NEGATIVE) mg/dL Urine Blood 25 H (NEGATIVE) /ul Urine Bilirubin 3 H (NEGATIVE) mg/dl Urine Marijuana (THC) Positive H (NEGATIVE) 10/12/20 10/13/20 Range/Units 13:20 08:59 RBC (4.7-6.0) M/mm3 Hct (42.0-52.0) % MCH (27-31) pg Plt Count (150-450) K/mm3 Lymphocytes % (20-51) % Monocytes % (0.0-9) % Lymphocytes # (1.5-3.5) k/mm3 Sodium 131 L (132-142) mmol/L Potassium 2.9 L D (3.4-4.6) mmol/L Chloride 88 L (97-106) mmol/L Carbon Dioxide 10.1 L 21.4 L (24-32.6) mmol/L Anion Gap 35.8 H 20.0 H (6.8-13.8) mmol/L BUN/Creatinine Ratio 7.6 L 5.1 L (9.0-21.6) Random Glucose 134 H 174 H (70-110) mg/dL Total Bilirubin 2.7 H 1.5 H (0.0-1.1) mg/dL AST 163 H 136 H (0-48) U/L ALT 74 H (19-67) U/L Total Protein 9.1 H (6.2-8.2) gm/dL Albumin 5.1 H (3.4-5.0) gm/dl Lipase 499 H (73-393) U/L Urine Protein (NEGATIVE) mg/dL Urine Blood (NEGATIVE) /ul Urine Bilirubin (NEGATIVE) mg/dl Urine Marijuana (THC) (NEGATIVE) Laboratory Results WBC 4.9 K/mm3 (4.0-10.5) 10/12/20 13:20 RBC 4.25 M/mm3 (4.7-6.0) L 10/12/20 13:20 Hgb 14.6 gm/dL (13.5-18.0) 10/12/20 13:20 Hct 41.9 % (42.0-52.0) L 10/12/20 13:20 MCV 98.6 fl (78-100) 10/12/20 13:20 MCH 34.4 pg (27-31) H 10/12/20 13:20 MCHC 34.8 g/dl (32-36) 10/12/20 13:20 RDW 12.8 % (11.5-14.0) 10/12/20 13:20 Plt Count 68 K/mm3 (150-450) L 10/12/20 13:20 MPV 10.4 fl (8-11.3) 10/12/20 13:20 Immature Gran % (Auto) 0.40 % (0.001-0.429) 10/12/20 13:20 Immature Gran # (Auto) 0.02 K/mm3 (0.000-0.0310) 10/12/20 13:20 Neutrophils % 68.6 % (42-75.0) 10/12/20 13:20 Lymphocytes % 18.5 % (20-51) L 10/12/20 13:20 Monocytes % 12.1 % (0.0-9) H 10/12/20 13:20 Eosinophils % 0.0 % (0.0-3.0) 10/12/20 13:20 Basophils % 0.4 % (0.0-1.0) 10/12/20 13:20 Nucleated RBC % 0.0 k/mm3 (0-1) 10/12/20 13:20 Neutrophils # 3.3 K/mm3 (1.3-6.0) 10/12/20 13:20 Lymphocytes # 0.90 k/mm3 (1.5-3.5) L 10/12/20 13:20 Monocytes # 0.6 k/mm3 (0.0-1.0) 10/12/20 13:20 Eosinophils # 0.0 k/mm3 (0.0-0.7) 10/12/20 13:20 Absolute Basophils 0.0 k/mm3 (0.0-0.1) 10/12/20 13:20 PT 10.3 Seconds (9.1-10.7) 10/12/20 13:20 INR (Anticoag Therapy) 0.99 INR (0.92-1.08) 10/12/20 13:20 PTT (Eva) 26.1 Seconds (24-32) 10/12/20 13:20 Sodium 135 mmol/L (132-142) 10/13/20 08:59 Plasma Sodium 136 mmol/L (130-142) 10/13/20 08:59 Potassium 3.4 mmol/L (3.4-4.6) 10/13/20 08:59 Chloride 97 mmol/L (97-106) 10/13/20 08:59 Carbon Dioxide 21.4 mmol/L (24-32.6) L 10/13/20 08:59 Anion Gap 20.0 mmol/L (6.8-13.8) H 10/13/20 08:59 BUN 6 mg/dL (6-23) 10/13/20 08:59 Creatinine 1.18 mg/dL (0.4-1.4) 10/13/20 08:59 Est GFR (Non-Af Amer) 70 mL/min (60-130) 10/13/20 08:59 BUN/Creatinine Ratio 5.1 (9.0-21.6) L 10/13/20 08:59 Random Glucose 174 mg/dL (70-110) H 10/13/20 08:59 Calcium 9.8 mg/dL (7.9-10.9) 10/13/20 08:59 Calcium Adj for Albumin 9.3 mg/dL (8.4-10.2) 10/13/20 08:59 Total Bilirubin 1.5 mg/dL (0.0-1.1) H 10/13/20 08:59 AST 136 U/L (0-48) H 10/13/20 08:59 ALT 64 U/L (19-67) 10/13/20 08:59 Alkaline Phosphatase 71 U/L (50-170) 10/13/20 08:59 Total Protein 7.3 gm/dL (6.2-8.2) 10/13/20 08:59 Albumin 4.2 gm/dl (3.4-5.0) 10/13/20 08:59 Lipase 499 U/L (73-393) H 10/12/20 13:20 Urine Color Dark yellow 10/12/20 12:58 Urine Appearance Slightly cloudy (CLEAR) 10/12/20 12:58 Urine pH 6.0 pH (5.0-7.0) 10/12/20 12:58 Ur Specific [place] >=1.030 SP.GR. (1.005-1.030) 10/12/20 12:58 Urine Protein 100 mg/dL (NEGATIVE) H 10/12/20 12:58 Urine Glucose (UA) Negative mg/dL (NEGATIVE) 10/12/20 12:58 Urine Ketones Large mg/dL (NEGATIVE) 10/12/20 12:58 Urine Blood 25 /ul (NEGATIVE) H 10/12/20 12:58 Urine Nitrate Negative (NEGATIVE) 10/12/20 12:58 Urine Bilirubin 3 mg/dl (NEGATIVE) H 10/12/20 12:58 Urine Urobilinogen Normal EU/dl (NORMAL) 10/12/20 12:58 Ur Leukocyte Esterase Negative /ul (NEGATIVE) 10/12/20 12:58 Urine RBC None seen /hpf (0-5) 10/12/20 12:58 Urine WBC 0-5 /hpf (0-5) 10/12/20 12:58 Ur Epithelial Cells 0-5 /hpf (0-5) 10/12/20 12:58 Urine Bacteria None seen (NONE) 10/12/20 12:58 Fine Granular Casts Trace /LPF (NONE) 10/12/20 12:58 Urine Culture Comments No culture indicated 10/12/20 12:58 Urine Opiates Screen Negative (NEGATIVE) 10/12/20 12:58 Barbiturate Screen Negative (NEGATIVE) 10/12/20 12:58 Ur Phencyclidine Scrn Negative (NEGATIVE) 10/12/20 12:58 Urine Amphetamine Negative (NEGATIVE) 10/12/20 12:58 U Benzodiazepines Scrn Negative (NEGATIVE) 10/12/20 12:58 Urine Cocaine Screen Negative (NEGATIVE) 10/12/20 12:58 Urine Marijuana (THC) Positive (NEGATIVE) H 10/12/20 12:58 Ethyl Alcohol Less than 3.0 mg/dL (0.0-10.0) 10/12/20 13:20 SARS-CoV-2 (PCR) Not detected (NotDetected) 10/12/20 18:50 Assessment/Plan - Narrative Narrative: Olu is a 50 yo male with hypokalemia and hyponatremia secondary to vomiting. Likely from alcohol above. No evidence of withdrawal at this time and he has been drinking too recently for withdrawal to start yet. Will place him on CIWA protocol though and start oral ativan to prevent withdrawal as he will be stopping alcohol by his reports. Will replace potassium and monitor. Plan to discharge to home tomorrow when potassium replaced. Will admit to observation. - Assessment/Plan (1) Hypokalemia due to excessive gastrointestinal loss of potassium Problem: Acute (2) Alcoholism /alcohol abuse Problem: Chronic (3) Hyponatremia Problem: Resolved
--- NOTE | 2020-10-13 10:55 | DS ---
(1) Hypokalemia due to excessive gastrointestinal loss of potassium Problem: Resolved (2) Alcoholism /alcohol abuse Problem: Chronic (3) Hyponatremia Problem: Resolved Date of Discharge:: 10/13/20 Hospital Course: Olu is a 50 yo male admitted for hypokalemia (2.9) and hyponatremia (131) secondary to vomiting. Suspect related to alcohol intake. This appeared to be resolved on admission and he had no vomiting during hospital course. Potassium was replaced and labs monitored. Sodium and potassium returned to normal. He was monitored on CIWA but his highest score was 3. He was placed on scheduled ativan to prevent withdrawal. He will be discharged to home today and I will send him home with a rx of ativan to help with withdrawal as he plans to stop drinking and I will send zofran for prn use for nausea. He may follow up with me in clinic. Procedures Performed: none Results and Findings: Lab Pending Results 10/12/20 12:58: Urine Color Dark yellow, Urine Appearance Slightly cloudy, Urine pH 6.0, Ur Specific [place] >=1.030, Urine Protein 100 H, Urine Glucose (UA) Negative, Urine Ketones Large, Urine Blood 25 H, Urine Nitrate Negative, Urine Bilirubin 3 H, Urine Urobilinogen Normal, Ur Leukocyte Esterase Negative, Urine RBC None seen, Urine WBC 0-5, Ur Epithelial Cells 0-5, Urine Bacteria None seen, Fine Granular Casts Trace, Urine Culture Comments No culture indicated 10/12/20 12:58: Urine Opiates Screen Negative, Barbiturate Screen Negative, Ur Phencyclidine Scrn Negative, Urine Amphetamine Negative, U Benzodiazepines Scrn Negative, Urine Cocaine Screen Negative, Urine Marijuana (THC) Positive H 10/12/20 13:20: WBC 4.9, RBC 4.25 L, Hgb 14.6, Hct 41.9 L, MCV 98.6, MCH 34.4 H, MCHC 34.8, RDW 12.8, Plt Count 68 L, MPV 10.4, Immature Gran % (Auto) 0.40, Immature Gran # (Auto) 0.02, Neutrophils % 68.6, Lymphocytes % 18.5 L, Monocytes % 12.1 H, Eosinophils % 0.0, Basophils % 0.4, Nucleated RBC % 0.0, Neutrophils # 3.3, Lymphocytes # 0.90 L, Monocytes # 0.6, Eosinophils # 0.0, Absolute Basophils 0.0 10/12/20 13:20: PT 10.3, INR (Anticoag Therapy) 0.99, PTT ([place]) 26.1 10/12/20 13:20: Sodium 131 L, Plasma Sodium 132, Potassium 2.9 L D, Chloride 88 L, Carbon Dioxide 10.1 L, Anion Gap 35.8 H, BUN 10, Creatinine 1.32, Est GFR (Non-Af Amer) 61, BUN/Creatinine Ratio 7.6 L, Random Glucose 134 H, Calcium 9.7, Calcium Adj for Albumin 8.5, Total Bilirubin 2.7 H, AST 163 H, ALT 74 H, Alkaline Phosphatase 95, Total Protein 9.1 H, Albumin 5.1 H, Lipase 499 H, Ethyl Alcohol Less than 3.0 10/12/20 18:50: SARS-CoV-2 (PCR) Not detected 10/13/20 08:59: Sodium 135, Plasma Sodium 136, Potassium 3.4, Chloride 97, Carbon Dioxide 21.4 L, Anion Gap 20.0 H, BUN 6, Creatinine 1.18, Est GFR (Non-Af Amer) 70, BUN/Creatinine Ratio 5.1 L, Random Glucose 174 H, Calcium 9.8, Calcium Adj for Albumin 9.3, Total Bilirubin 1.5 H, AST 136 H, ALT 64, Alkaline Phosphatase 71, Total Protein 7.3, Albumin 4.2 Discharge Location: Home Disposition: Home self-care Condition: Fair Discharge Activity: Activity as tolerated Discharge Diet: General/regular food, Other - no alcohol Referrals: Moy Araujo DO [Staff Physician] - One Week Problem Oriented Discharge Instructions to Patient/Family: Hypokalemia, Alcohol Use Disorder Prescriptions (Any new or edited meds): LORazepam [Ativan] 1 mg PO Q6H #90 tab Transmission Status: Received by [place], [place] Ondansetron HCl [Zofran] 4 mg PO Q4H PRN #30 tab PRN Reason: Nausea And Vomiting Transmission Status: Pending to [place], [place] Complete Home Medications List: Complete Home Medication List: atorvastatin 40 mg tablet 40 mg PO DAILY 01/31/20 hydrochlorothiazide 25 mg tablet 25 mg PO DAILY #90 tab 01/31/20 omeprazole 40 mg capsule,delayed release 40 mg PO DAILY #90 cap 02/21/20 gabapentin 300 mg capsule 900 mg PO BID #180 cap 09/03/20 Acetaminophen/Diphenhydramine [Tylenol Pm Ex-Strength Caplet] 2 ea PO HS 10/12/20 Acetaminophen [Tylenol] 1,000 mg PO HS PRN tablet 10/13/20 Folic Acid 1 mg PO DAILY tablet 10/13/20 LORazepam [Ativan] 1 mg PO Q6H #90 tab 10/13/20 Ondansetron HCl [Zofran] 4 mg PO Q4H PRN #30 tab 10/13/20 diphenhydrAMINE HCL [Benadryl] 50 mg PO HS PRN capsule 10/13/20
[2020-10-13 13:36] VITALS: BP 124/66
== END 2020-10-13 13:20 | disposition home or self-care (01) ==
LOC: ER 12:43 → MS 12:43
PROVIDERS: ADMIT Family Medicine; ATTEND Family Medicine
DX: E87.6 Hypokalemia; F10.20 Alcohol dependence, uncomplicated; R10.9 Unspecified abdominal pain; K76.0 Fatty (change of) liver, not elsewhere classified; E87.1 Hypo-osmolality and hyponatremia; R11.2 Nausea with vomiting, unspecified